=== PATIENT | female | born 1965 | race Caucasian/White ===

== ENCOUNTER 2020-10-18 09:36 | Inpatient (IN) | payer MEDICAID, OTHER ==
[~2020-10-18] VITALS: Ht 162.6 cm; Wt 62.0 kg
[2020-10-18] MEDS ORDERED: SODIUM CHLORIDE 0.9% 1,000 ML IVB ONE (10:30)
[2020-10-18] MEDS ORDERED: SODIUM CHLORIDE 0.9% 1,000 ML IV ONE (10:30)
[2020-10-18] MEDS ORDERED: ASPirin 81 mg TAB PO ONE (10:30)
[2020-10-18] MEDS ORDERED: dilTIAZem 25 MG/5 ML VIAL IV ONE ×2 (10:30)
[2020-10-18] MEDS ORDERED: ONDANSETRON HCL 4 MG/2 ML VIAL IV ONE (10:45)
[2020-10-18 10:49] LABS: Basophils # (auto) 0 10 ^3/uL (0-0.2); Basophils % (auto) 0.6 % (0.0-2.0); Eosinophils # (auto) 0.1 10 ^3/uL (0-0.8); Eosinophils % (auto) 1.9 % (0.0-7.0); Hematocrit 34.9 % (36.0-46.0); Hemoglobin 11.8 g/dL (12.2-16.2); Lymphocytes # (auto) 0.9 10 ^3/uL (0.4-5.4); Lymphocytes % (auto) 13.4 % (10.0-50.0); Mean Corpuscular Hemoglobin 29.9 pg (28.0-32.0); Mean Corpuscular Hgb Conc. 33.9 g/dL (32.0-36.0); Mean Corpuscular Volume 88.3 fL (80.0-100.0); Monocytes # (auto) 0.4 10 ^3/uL (0-1.3); Monocytes % (auto) 5.4 % (0.0-12.0); Neutrophils # (auto) 5.2 10 ^3/uL (1.6-8.6); Neutrophils % (auto) 78.7 % (37.0-80.0); Nucleated Red Blood Cells % 0.2 %; Red Blood Cells 3.95 10^6/uL (4.0-5.20); Red Cell Distribution Width 15.5 % (11.8-14.3); White Blood Cell 6.6 10^3/uL (4.4-10.8)
[2020-10-18 11:07] LABS: Anion Gap 9 (5-15); Blood Urea Nitrogen 18 mg/dL (7-18); Calcium 8.5 mg/dL (8.5-10.1); Carbon Dioxide 21 mmol/L (21-32); Chloride 112 mmol/L (98-107); Glucose 96 mg/dL (74-106); Magnesium 2.2 mg/dL (1.6-2.6); Potassium 4.2 mmol/L (3.5-5.1); Sodium 142 mmol/L (136-145)
[2020-10-18 11:11] LABS: INR 1.06 (0.9-1.15); Partial Thromboplastin Time 24.2 sec (23.0-31.2)
[2020-10-18 11:12] LABS: Alanine Aminotransferase 31 U/L (13-56); Alkaline Phosphatase 95 U/L (45-117); Aspartate Aminotransferase 18 U/L (15-37); GFR African American 83 mL/min; GFR Non-African American 69 mL/min; Total Protein 6.9 g/dL (6.4-8.2)
[2020-10-18 11:50] LABS: Urine Bacteria NONE SEEN /hpf (None Seen); Urine Blood Negative /uL (Negative); Urine Specific Gravity 1.017 (1.001-1.035); Urine WBC <1 /hpf (0 - 5)
[2020-10-18] MEDS ORDERED: NITROGLYCERIN 0.4 MG SL TAB SL PRN (12:45)
[2020-10-18] MEDS ORDERED: MORPHINE SULFATE INJECTION 2 MG/ML SYRG IV PRN ×2 (12:45→13:00)
[2020-10-18] MEDS ORDERED: TEMAZEPAM 15 MG CAP PO PRN (13:00)
[2020-10-18] MEDS ORDERED: LACTULOSE 20Gm/30ML SOLN PO PRN (13:00)
[2020-10-18] MEDS ORDERED: ACETAMINOPHEN 500 MG TAB PO PRN (13:00)
[2020-10-18] MEDS ORDERED: traMADol HCL 50 MG TAB PO PRN (13:00)
[2020-10-18] MEDS ORDERED: IOHEXOL 350 MG/ML 100ML IJ ONE (13:22)
[2020-10-18 13:23] LABS: Alcohol, Urine < 3.0 mg/dL (0-10); Amphetamine Screen, Urine NEGATIVE (NEGATIVE); Barbiturate Scree,Urine NEGATIVE (NEGATIVE); Benzodiazephine Screen, Urine NEGATIVE (NEGATIVE); Cannabinoid Screen, Urine NEGATIVE (NEGATIVE); Cocaine Screen, Urine NEGATIVE (NEGATIVE); Opiate Scree,Urine NEGATIVE (NEGATIVE); Phencyclidine Screen, Urine NEGATIVE (NEGATIVE)
[2020-10-18 17:05] VITALS: BP 152/92
[2020-10-18] MEDS: SODIUM CHLOR 0.9% PF (SALINE LOCK) 10ML VIAL/SYR IV SCH ×2 (17:15→20:59)
[2020-10-18 17:53] VITALS: BP 152/92
[2020-10-18] MEDS: FAMOTIDINE 20 MG TAB PO SCH (20:58)
[2020-10-18] MEDS: METOPROLOL TARTRATE 25 MG TAB PO SCH (20:58)
[2020-10-18 22:00] VITALS: BP 129/95
[2020-10-18] MEDS ORDERED: APIXABAN 5 MG TAB PO SCH (22:00)
[2020-10-19 05:00] VITALS: BP 135/97
[2020-10-19] MEDS: SODIUM CHLOR 0.9% PF (SALINE LOCK) 10ML VIAL/SYR IV SCH ×3 (05:15→21:08)
[2020-10-19 08:00] VITALS: BP 129/95
[2020-10-19] MEDS ORDERED: DIGOXIN (250MCG/ML) 2 ML AMPULE IV ONE (08:15)
[2020-10-19 09:00] VITALS: BP 151/105
[2020-10-19] MEDS ORDERED: ADENOSINE 58 MG in GIVE UN-DILUTED 0 ML IV STA (09:18)
[2020-10-19] MEDS ORDERED: FUROSEMIDE 40 MG/4 ML VIAL IV SCH (10:00)
[2020-10-19] MEDS ORDERED: ENOXAPARIN SOD 80 MG/0.8ML SYRINGE SC SCH (10:00)
[2020-10-19] MEDS: POTASSIUM CHL 20 Meq TABLET PO SCH (11:40)
[2020-10-19] MEDS: FAMOTIDINE 20 MG TAB PO SCH ×2 (11:41→21:08)
[2020-10-19] MEDS: LISINOPRIL 10 MG TAB PO SCH (11:41)
[2020-10-19] MEDS: METOPROLOL TARTRATE 25 MG TAB PO SCH ×2 (11:41→21:13)
[2020-10-19] MEDS: ENOXAPARIN SOD 80 MG/0.8ML SYRINGE SC SCH ×2 (11:42→21:08)
[2020-10-19] MEDS: DIGOXIN (250MCG/ML) 2 ML AMPULE IV SCH ×3 (11:42→23:00)
[2020-10-19] MEDS: ASPirin 81 mg TAB PO SCH (11:43)
[2020-10-19 11:45] LABS: Basophils # (auto) 0.1 10 ^3/uL (0-0.2); Basophils % (auto) 0.8 % (0.0-2.0); Eosinophils # (auto) 0.1 10 ^3/uL (0-0.8); Eosinophils % (auto) 0.9 % (0.0-7.0); Hematocrit 32.8 % (36.0-46.0); Lymphocytes # (auto) 0.9 10 ^3/uL (0.4-5.4); Lymphocytes % (auto) 13.5 % (10.0-50.0); Mean Corpuscular Hemoglobin 29.6 pg (28.0-32.0); Mean Corpuscular Hgb Conc. 33.6 g/dL (32.0-36.0); Mean Corpuscular Volume 88.2 fL (80.0-100.0); Monocytes # (auto) 0.4 10 ^3/uL (0-1.3); Monocytes % (auto) 5.7 % (0.0-12.0); Neutrophils # (auto) 5.5 10 ^3/uL (1.6-8.6); Neutrophils % (auto) 79.1 % (37.0-80.0); Red Blood Cells 3.72 10^6/uL (4.0-5.20); Red Cell Distribution Width 15.8 % (11.8-14.3)
[2020-10-19 12:01] LABS: Albumin 3.8 g/dL (3.4-5.0); Anion Gap 8 (5-15); Blood Urea Nitrogen 24 mg/dL (7-18); Calcium 8.6 mg/dL (8.5-10.1); Carbon Dioxide 21 mmol/L (21-32); Chloride 111 mmol/L (98-107); Glucose 126 mg/dL (74-106); Potassium 4.8 mmol/L (3.5-5.1); Sodium 140 mmol/L (136-145)
[2020-10-19 12:08] LABS: Alanine Aminotransferase 29 U/L (13-56); Alkaline Phosphatase 90 U/L (45-117); Aspartate Aminotransferase 20 U/L (15-37); BUN/Creatinine Ratio 28.2; Bilirubin, Total 0.9 mg/dL (0.2-1.0); Cholesterol 153 mg/dL (< 200); GFR African American 89 mL/min; GFR Non-African American 73 mL/min; HDL Cholesterol 48 mg/dL (40-59); LDL Cholesterol 94 mg/dL (< 100); Total Protein 6.6 g/dL (6.4-8.2); Triglycerides 49 mg/dL (< 150)
[2020-10-19 13:00] VITALS: BP 151/94
[2020-10-19 17:00] VITALS: BP 154/100
[2020-10-19] MEDS: FUROSEMIDE 40 MG/4 ML VIAL IV SCH (18:31)
[2020-10-19] MEDS ORDERED: METOPROLOL TARTRATE 1MG/1ML-5ML VIAL IV ONE (18:45)
[2020-10-19 22:24] VITALS: BP 142/72
[2020-10-20 05:15] VITALS: BP 139/82
[2020-10-20 05:18] LABS: Basophils # (auto) 0.1 10 ^3/uL (0-0.2); Basophils % (auto) 0.8 % (0.0-2.0); Eosinophils # (auto) 0.2 10 ^3/uL (0-0.8); Eosinophils % (auto) 2.4 % (0.0-7.0); Hemoglobin 11.4 g/dL (12.2-16.2); Lymphocytes # (auto) 1.6 10 ^3/uL (0.4-5.4); Lymphocytes % (auto) 22.7 % (10.0-50.0); Mean Corpuscular Hemoglobin 29.9 pg (28.0-32.0); Mean Corpuscular Hgb Conc. 34.6 g/dL (32.0-36.0); Mean Corpuscular Volume 86.3 fL (80.0-100.0); Monocytes # (auto) 0.5 10 ^3/uL (0-1.3); Monocytes % (auto) 7.5 % (0.0-12.0); Neutrophils # (auto) 4.7 10 ^3/uL (1.6-8.6); Neutrophils % (auto) 66.6 % (37.0-80.0); Red Blood Cells 3.82 10^6/uL (4.0-5.20); Red Cell Distribution Width 15.4 % (11.8-14.3); White Blood Cell 7.1 10^3/uL (4.4-10.8)
[2020-10-20] MEDS: DIGOXIN (250MCG/ML) 2 ML AMPULE IV SCH ×4 (05:20→23:00)
[2020-10-20 05:39] LABS: BUN/Creatinine Ratio 28.4; Calcium 8.9 mg/dL (8.5-10.1); Potassium 4.3 mmol/L (3.5-5.1)
[2020-10-20] MEDS: FUROSEMIDE 40 MG/4 ML VIAL IV SCH ×2 (05:40→17:21)
[2020-10-20] MEDS: SODIUM CHLOR 0.9% PF (SALINE LOCK) 10ML VIAL/SYR IV SCH ×3 (06:24→22:00)
[2020-10-20 09:00] VITALS: BP 150/78
[2020-10-20] MEDS: ASPirin 81 mg TAB PO SCH (09:34)
[2020-10-20] MEDS: FAMOTIDINE 20 MG TAB PO SCH ×2 (09:35→22:34)
[2020-10-20] MEDS: POTASSIUM CHL 20 Meq TABLET PO SCH (09:35)
[2020-10-20] MEDS: DIGOXIN 0.125 MG TAB PO SCH (09:35)
[2020-10-20] MEDS: METOPROLOL TARTRATE 25 MG TAB PO SCH ×2 (09:35→22:34)
[2020-10-20] MEDS: LISINOPRIL 10 MG TAB PO SCH (09:36)
[2020-10-20] MEDS: ENOXAPARIN SOD 80 MG/0.8ML SYRINGE SC SCH ×2 (09:36→22:34)
[2020-10-20 13:00] VITALS: BP 133/65
[2020-10-20 17:00] VITALS: BP 140/72
[2020-10-20 19:36] LABS: INR 1.09 (0.9-1.15); Partial Thromboplastin Time 34.9 sec (23.0-31.2)
[2020-10-20 22:00] VITALS: BP 129/68
[2020-10-21] VITALS (11 sets, daily range): BP systolic 113–165; BP diastolic 65–95
[2020-10-21] MEDS: FUROSEMIDE 40 MG/4 ML VIAL IV SCH (05:24)
[2020-10-21] MEDS: SODIUM CHLOR 0.9% PF (SALINE LOCK) 10ML VIAL/SYR IV SCH ×3 (05:24→22:24)
[2020-10-21 05:47] LABS: Basophils # (auto) 0 10 ^3/uL (0-0.2); Basophils % (auto) 0.5 % (0.0-2.0); Eosinophils # (auto) 0.2 10 ^3/uL (0-0.8); Eosinophils % (auto) 2.7 % (0.0-7.0); Hematocrit 36.8 % (36.0-46.0); Hemoglobin 12.9 g/dL (12.2-16.2); Lymphocytes # (auto) 1.5 10 ^3/uL (0.4-5.4); Lymphocytes % (auto) 20.7 % (10.0-50.0); Mean Corpuscular Hemoglobin 29.9 pg (28.0-32.0); Mean Corpuscular Volume 85.2 fL (80.0-100.0); Monocytes # (auto) 0.6 10 ^3/uL (0-1.3); Monocytes % (auto) 8.9 % (0.0-12.0); Neutrophils # (auto) 4.7 10 ^3/uL (1.6-8.6); Neutrophils % (auto) 67.2 % (37.0-80.0); Red Blood Cells 4.32 10^6/uL (4.0-5.20)
[2020-10-21 06:09] LABS: BUN/Creatinine Ratio 23.5; Calcium 9.1 mg/dL (8.5-10.1); INR 1.12 (0.9-1.15); Partial Thromboplastin Time 36.1 sec (23.0-31.2); Potassium 4.1 mmol/L (3.5-5.1)
[2020-10-21] MEDS: PROMETHAZINE HCL 25 MG/ML 1ML IV PRN ×2 (09:28→13:55)
[2020-10-21] MEDS ORDERED: LIDOCAINE 2%HCL (LOCAL ANESTH.) INJ 20ML MDV ONE (09:55)
[2020-10-21] MEDS ORDERED: IODIXANOL 320MG/ML 100ML BTL IV ONE ×2 (09:55→10:03)
[2020-10-21] MEDS: METOPROLOL TARTRATE 25 MG TAB PO SCH ×3 (10:00→22:24)
[2020-10-21] MEDS: ASPirin 81 mg TAB PO SCH (10:00)
[2020-10-21] MEDS: LISINOPRIL 10 MG TAB PO SCH ×2 (10:00→13:50)
[2020-10-21] MEDS: DIGOXIN 0.125 MG TAB PO SCH ×2 (10:00→13:51)
[2020-10-21] MEDS: ENOXAPARIN SOD 80 MG/0.8ML SYRINGE SC SCH ×2 (10:00→22:00)
[2020-10-21] MEDS: POTASSIUM CHL 20 Meq TABLET PO SCH ×2 (10:00→13:53)
[2020-10-21] MEDS ORDERED: ANGIOMAX 250 MG VIAL IV ONE (10:02)
[2020-10-21] MEDS ORDERED: fentaNYL CITRATE 100 MCG/2 ML VL ONE (10:03)
[2020-10-21] MEDS ORDERED: MIDAZOLAM HCL 2MG/2ML 2ml VIAL (1mg/ml) ONE (10:03)
[2020-10-21] MEDS ORDERED: SODIUM CHL 0.9% 0 ML ONE (10:03)
[2020-10-21] MEDS ORDERED: diphenhdrAMINE HCL 50 MG/1 ML VL ONE (10:29)
[2020-10-21] MEDS ORDERED: FAMOTIDINE 20 MG TAB PO SCH (22:00)
[2020-10-22 04:56] VITALS: BP 134/64
[2020-10-22] MEDS: SODIUM CHLOR 0.9% PF (SALINE LOCK) 10ML VIAL/SYR IV SCH ×3 (05:31→22:44)
[2020-10-22 06:00] LABS: BUN/Creatinine Ratio 25.5; Potassium 4.2 mmol/L (3.5-5.1)
[2020-10-22 06:31] LABS: Basophils # (auto) 0 10 ^3/uL (0-0.2); Basophils % (auto) 0.6 % (0.0-2.0); Eosinophils # (auto) 0.2 10 ^3/uL (0-0.8); Eosinophils % (auto) 2.1 % (0.0-7.0); Hematocrit 38.3 % (36.0-46.0); Hemoglobin 12.8 g/dL (12.2-16.2); Lymphocytes # (auto) 1.4 10 ^3/uL (0.4-5.4); Lymphocytes % (auto) 17.4 % (10.0-50.0); Mean Corpuscular Hemoglobin 28.7 pg (28.0-32.0); Mean Corpuscular Hgb Conc. 33.4 g/dL (32.0-36.0); Mean Corpuscular Volume 85.9 fL (80.0-100.0); Monocytes # (auto) 0.8 10 ^3/uL (0-1.3); Monocytes % (auto) 9.9 % (0.0-12.0); Neutrophils # (auto) 5.6 10 ^3/uL (1.6-8.6); Nucleated Red Blood Cells % 0.1 %; Red Blood Cells 4.46 10^6/uL (4.0-5.20); Red Cell Distribution Width 14.8 % (11.8-14.3)
[2020-10-22 09:00] VITALS: BP 150/73
[2020-10-22] MEDS ORDERED: FUROSEMIDE 40 MG/4 ML VIAL IV SCH (10:00)
[2020-10-22] MEDS: POTASSIUM CHL 20 Meq TABLET PO SCH (11:14)
[2020-10-22] MEDS: DIGOXIN 0.125 MG TAB PO SCH (11:15)
[2020-10-22] MEDS: METOPROLOL TARTRATE 25 MG TAB PO SCH ×2 (11:15→22:45)
[2020-10-22] MEDS: LISINOPRIL 10 MG TAB PO SCH (11:16)
[2020-10-22 13:00] VITALS: BP 118/71
[2020-10-22] MEDS: FAMOTIDINE 20 MG TAB PO SCH ×2 (13:39→22:45)
[2020-10-22 16:38] VITALS: BP 112/74
[2020-10-22 20:00] VITALS: BP 111/71
[2020-10-22] MEDS: APIXABAN 5 MG TAB PO SCH (22:45)
[2020-10-23 05:00] VITALS: BP 104/59
[2020-10-23] MEDS: SODIUM CHLOR 0.9% PF (SALINE LOCK) 10ML VIAL/SYR IV SCH ×2 (05:43→13:20)
[2020-10-23 06:06] LABS: Basophils # (auto) 0.1 10 ^3/uL (0-0.2); Basophils % (auto) 0.8 % (0.0-2.0); Eosinophils # (auto) 0.4 10 ^3/uL (0-0.8); Eosinophils % (auto) 4.5 % (0.0-7.0); Hematocrit 41.9 % (36.0-46.0); Hemoglobin 14.6 g/dL (12.2-16.2); Lymphocytes # (auto) 1.9 10 ^3/uL (0.4-5.4); Lymphocytes % (auto) 21.5 % (10.0-50.0); Mean Corpuscular Hemoglobin 29.8 pg (28.0-32.0); Mean Corpuscular Hgb Conc. 34.8 g/dL (32.0-36.0); Mean Corpuscular Volume 85.6 fL (80.0-100.0); Monocytes % (auto) 10.9 % (0.0-12.0); Neutrophils # (auto) 5.4 10 ^3/uL (1.6-8.6); Neutrophils % (auto) 62.3 % (37.0-80.0); Nucleated Red Blood Cells % 0.1 %; Red Blood Cells 4.89 10^6/uL (4.0-5.20); Red Cell Distribution Width 14.9 % (11.8-14.3); White Blood Cell 8.7 10^3/uL (4.4-10.8)
[2020-10-23 06:21] LABS: Calcium 9.6 mg/dL (8.5-10.1); Potassium 4.5 mmol/L (3.5-5.1)
[2020-10-23 06:22] LABS: BUN/Creatinine Ratio 27.1
[2020-10-23 09:00] VITALS: BP 127/79
[2020-10-23] MEDS ORDERED: FURO20TA3 PO (10:24)
[2020-10-23] MEDS ORDERED: DIGO1TAB48 PO (10:24)
[2020-10-23] MEDS ORDERED: APIX5TAB PO (10:24)
[2020-10-23] MEDS ORDERED: MET25T PO (10:24)
[2020-10-23] MEDS ORDERED: LISI-716 PO (10:27)
[2020-10-23] MEDS: METOPROLOL TARTRATE 25 MG TAB PO SCH (10:29)
[2020-10-23] MEDS: APIXABAN 5 MG TAB PO SCH (10:30)
[2020-10-23] MEDS: DIGOXIN 0.125 MG TAB PO SCH (10:30)
[2020-10-23] MEDS: FAMOTIDINE 20 MG TAB PO SCH (10:31)
[2020-10-23] MEDS: LISINOPRIL 10 MG TAB PO SCH (10:31)
[2020-10-23 11:04] VITALS: BP 127/79
[2020-10-23 13:00] VITALS: BP 113/58
== END 2020-10-23 14:45 | disposition home or self-care (01) | DRG 286 ==
LOC: ER 09:36 → EDBD 09:36 → TELE 12:45 → TELE-CENTR 16:03
PROVIDERS: ADMIT Internal Medicine; ATTEND Internal Medicine
PROC: 4A023N8 Measurement of Cardiac Sampling and Pressure, Bilateral, Percutaneous Approach (ICD-10-PCS; principal; 2020-10-21)
PROC: B2111ZZ Fluoroscopy of Multiple Coronary Arteries using Low Osmolar Contrast (ICD-10-PCS; 2020-10-21)
PROC: B2151ZZ Fluoroscopy of Left Heart using Low Osmolar Contrast (ICD-10-PCS; 2020-10-21)
PROC: 4A033BC Measurement of Arterial Pressure, Coronary, Percutaneous Approach (ICD-10-PCS; 2020-10-21)
DX: I48.91 Unspecified atrial fibrillation (principal); I50.43 Acute on chronic combined systolic (congestive) and diastolic (congestive) heart failure; J81.0 Acute pulmonary edema; D64.9 Anemia, unspecified; D69.6 Thrombocytopenia, unspecified; I27.20 Pulmonary hypertension, unspecified; Z20.822 Contact with and (suspected) exposure to COVID-19; I11.0 Hypertensive heart disease with heart failure; I25.10 Atherosclerotic heart disease of native coronary artery without angina pectoris; Z79.01 Long term (current) use of anticoagulants; Z88.8 Allergy status to other drugs, medicaments and biological substances; Z82.49 Family history of ischemic heart disease and other diseases of the circulatory system; Z87.891 Personal history of nicotine dependence; Z90.49 Acquired absence of other specified parts of digestive tract
CPT/HCPCS: 36415; 70450; 71045; 71046; 71275; 80048; 80053; 80061; 80307; 81001; 81025; 82550; 83735; 83880; 84443; 84484; 85025; 85379; 85610; 85730; 86850; 86900; 86901; 87426; 93005; 93306; 93460; 93571; 93970; 96361; 96374; 96375; 99152; 99153; C1751; G0378; J0153; J2250; J2405; Q9967

== ENCOUNTER 2020-11-23 12:56 | Emergency (ER) | payer MEDICAID ==
[~2020-11-23] VITALS: Ht 162.6 cm; Wt 65.8 kg
[~2020-11-23 12:56] MED LIST: APIX5TAB PO; DIGO1TAB48 PO; FURO20TA3 PO; LISI-716 PO; MET25T PO
[2020-11-23 16:22] VITALS: BP 136/77
== END 2020-11-23 17:17 | disposition home or self-care (01) ==
LOC: ER 12:56
DX: H60.92 Unspecified otitis externa, left ear (principal); I11.0 Hypertensive heart disease with heart failure; I50.9 Heart failure, unspecified; I48.91 Unspecified atrial fibrillation; Z79.899 Other long term (current) drug therapy; Z88.1 Allergy status to other antibiotic agents; Z88.8 Allergy status to other drugs, medicaments and biological substances

== ENCOUNTER 2021-02-16 08:55 | Emergency (ER) | payer MEDICAID ==
[~2021-02-16] VITALS: Ht 162.6 cm; Wt 63.5 kg
[2021-02-16] MEDS ORDERED: ASPirin 81 mg TAB PO ONE (09:15)
[2021-02-16 09:52] LABS: Albumin 3.9 g/dL (3.4-5.0); Anion Gap 7 (5-15); Blood Urea Nitrogen 14 mg/dL (7-18); Calcium 8.7 mg/dL (8.5-10.1); Carbon Dioxide 23 mmol/L (21-32); Chloride 112 mmol/L (98-107); Glucose 86 mg/dL (74-106); Sodium 142 mmol/L (136-145)
[2021-02-16 09:57] LABS: Alanine Aminotransferase 19 U/L (13-56); Alkaline Phosphatase 104 U/L (45-117); Aspartate Aminotransferase 12 U/L (15-37); BUN/Creatinine Ratio 13.1; Bilirubin, Total 0.7 mg/dL (0.2-1.0); GFR African American 68 mL/min; GFR Non-African American 56 mL/min
[2021-02-16 09:58] LABS: Basophils # (auto) 0 10 ^3/uL (0-0.2); Basophils % (auto) 0.4 % (0.0-2.0); Eosinophils # (auto) 0.1 10 ^3/uL (0-0.8); Eosinophils % (auto) 2.6 % (0.0-7.0); Hematocrit 31.8 % (36.0-46.0); Hemoglobin 10.8 g/dL (12.2-16.2); Lymphocytes # (auto) 0.8 10 ^3/uL (0.4-5.4); Lymphocytes % (auto) 14.1 % (10.0-50.0); Mean Corpuscular Hemoglobin 29.5 pg (28.0-32.0); Mean Corpuscular Hgb Conc. 33.9 g/dL (32.0-36.0); Mean Corpuscular Volume 86.9 fL (80.0-100.0); Monocytes # (auto) 0.3 10 ^3/uL (0-1.3); Monocytes % (auto) 5.8 % (0.0-12.0); Neutrophils # (auto) 4.4 10 ^3/uL (1.6-8.6); Neutrophils % (auto) 77.1 % (37.0-80.0); Red Blood Cells 3.66 10^6/uL (4.0-5.20); Red Cell Distribution Width 13.6 % (11.8-14.3); White Blood Cell 5.7 10^3/uL (4.4-10.8)
[2021-02-16 10:07] LABS: INR 1.14 (0.9-1.15); Partial Thromboplastin Time 32.1 sec (23.6-33.0)
[2021-02-16] MEDS ORDERED: FUROSEMIDE 20 MG/2 ML VIAL IV ONE (11:15)
[2021-02-16] MEDS ORDERED: METOPROLOL SUCCINATE XL 50 MG TAB PO ONE (11:45)
[2021-02-16] MEDS ORDERED: METOPROLOL TARTRATE 1MG/1ML-5ML VIAL IV ONE (11:45)
[2021-02-16] MEDS ORDERED: DIGOXIN (250MCG/ML) 2 ML AMPULE IV ONE (11:45)
[2021-02-16] MEDS ORDERED: DIGOXIN 0.25 MG TAB PO ONE (11:45)
[2021-02-16] MEDS ORDERED: dilTIAZem 25 MG/5 ML VIAL IV ONE (11:45)
[2021-02-16 14:31] VITALS: BP 127/72
== END 2021-02-16 13:03 | disposition home or self-care (01) ==
LOC: ER 08:55 → EDBD 08:55 → ER 13:03
DX: I48.91 Unspecified atrial fibrillation (principal); H91.10 Presbycusis, unspecified ear; I11.0 Hypertensive heart disease with heart failure; I50.9 Heart failure, unspecified; Z79.899 Other long term (current) drug therapy; Z88.1 Allergy status to other antibiotic agents; Z88.8 Allergy status to other drugs, medicaments and biological substances
CPT/HCPCS: 36415; 71045; 80053; 83880; 84443; 84484; 85025; 85610; 85730; 93005; 96374; 96375; 99285; J1160; J1940

== ENCOUNTER 2021-05-31 11:40 | Emergency (ER) | payer MEDICAID ==
[~2021-05-31] VITALS: Ht 162.6 cm; Wt 63.5 kg
[2021-05-31 14:56] VITALS: BP 156/89
[2021-05-31] MEDS ORDERED: methylPREDNISolone SOD SUCC 125 MG/2 ML VL IM ONE (15:15)
[2021-05-31] MEDS ORDERED: diphenhdrAMINE HCL 50 MG/1 ML VL IM ONE (15:15)
[2021-05-31] MEDS ORDERED: PRED10TA PO (15:20)
[2021-05-31] MEDS ORDERED: DIPH25CA66 PO (15:20)
== END 2021-05-31 15:59 | disposition home or self-care (01) ==
LOC: ER 11:40
DX: T78.40XA Allergy, unspecified, initial encounter (principal); I11.0 Hypertensive heart disease with heart failure; I50.9 Heart failure, unspecified; Z88.1 Allergy status to other antibiotic agents; X58.XXXA Exposure to other specified factors, initial encounter
CPT/HCPCS: 96372; 99284; J1200; J2930

== ENCOUNTER 2021-08-12 15:12 | Inpatient (IN) | payer MEDICAID ==
[~2021-08-12] VITALS: Ht 162.6 cm; Wt 63.3 kg
[~2021-08-12 15:12] MED LIST changes: +DIPH25CA66 PO; +PRED10TA PO
[2021-08-12 15:50] LABS: Basophils # (auto) 0.2 10 ^3/uL (0-0.2); Basophils % (auto) 2.9 % (0.0-2.0); Eosinophils # (auto) 0.2 10 ^3/uL (0-0.8); Eosinophils % (auto) 3.4 % (0.0-7.0); Hematocrit 33.4 % (36.0-46.0); Hemoglobin 11.2 g/dL (12.2-16.2); Lymphocytes % (auto) 16.4 % (10.0-50.0); Mean Corpuscular Hgb Conc. 33.4 g/dL (32.0-36.0); Mean Corpuscular Volume 83.7 fL (80.0-100.0); Monocytes # (auto) 0.4 10 ^3/uL (0-1.3); Monocytes % (auto) 7.3 % (0.0-12.0); Neutrophils # (auto) 4.2 10 ^3/uL (1.6-8.6); Nucleated Red Blood Cells % 0.1 %; Red Blood Cells 3.99 10^6/uL (4.0-5.20); Red Cell Distribution Width 16.1 % (11.8-14.3); White Blood Cell 5.9 10^3/uL (4.4-10.8)
[2021-08-12 16:08] LABS: INR 1.09 (0.9-1.15); Partial Thromboplastin Time 35.1 sec (23.6-33.0)
[2021-08-12 16:09] LABS: Albumin 4.1 g/dL (3.4-5.0); BUN/Creatinine Ratio 8.9; Calcium 8.5 mg/dL (8.5-10.1); Potassium 4.2 mmol/L (3.5-5.1)
[2021-08-12 16:12] LABS: Bilirubin, Total 0.5 mg/dL (0.2-1.0); Total Protein 7.1 g/dL (6.4-8.2)
[2021-08-12] MEDS ORDERED: dilTIAZem 25 MG/5 ML VIAL IV ONE ×2 (16:30→17:45)
[2021-08-12 16:51] LABS: Magnesium 2.1 mg/dL (1.6-2.6)
[2021-08-12 17:01] LABS: Urine Bacteria FEW /hpf (None Seen); Urine Blood TRACE /uL (Negative); Urine Specific Gravity 1.007 (1.001-1.035); Urine WBC 3 /hpf (0 - 5)
[2021-08-13] MEDS ORDERED: MORPHINE SULFATE INJECTION 2 MG/ML SYRG IV PRN (02:15)
[2021-08-13] MEDS ORDERED: NITROGLYCERIN 0.4 MG SL TAB SL PRN (02:15)
[2021-08-13] MEDS ORDERED: PNEUMOCOCCAL VACC POLYS 25 MCG/0.5 ML VIAL IM ONE (04:45)
[2021-08-13 06:34] VITALS: BP 133/90
[2021-08-13 09:00] VITALS: BP 141/85
[2021-08-13] MEDS ORDERED: LORazepam 2MG/ML-1ML VIAL IV PRN (09:30)
[2021-08-13 09:37] LABS: Basophils # (auto) 0.1 10 ^3/uL (0-0.2); Basophils % (auto) 1.5 % (0.0-2.0); Eosinophils # (auto) 0.1 10 ^3/uL (0-0.8); Eosinophils % (auto) 2.9 % (0.0-7.0); Hemoglobin 11.2 g/dL (12.2-16.2); Lymphocytes # (auto) 0.8 10 ^3/uL (0.4-5.4); Lymphocytes % (auto) 16.4 % (10.0-50.0); Mean Corpuscular Hemoglobin 28.4 pg (28.0-32.0); Mean Corpuscular Volume 83.4 fL (80.0-100.0); Monocytes # (auto) 0.3 10 ^3/uL (0-1.3); Neutrophils # (auto) 3.5 10 ^3/uL (1.6-8.6); Neutrophils % (auto) 72.2 % (37.0-80.0); Red Blood Cells 3.95 10^6/uL (4.0-5.20); Red Cell Distribution Width 15.8 % (11.8-14.3); White Blood Cell 4.9 10^3/uL (4.4-10.8)
[2021-08-13 09:49] LABS: Calcium 9.2 mg/dL (8.5-10.1); Potassium 4.1 mmol/L (3.5-5.1)
[2021-08-13 09:51] LABS: BUN/Creatinine Ratio 11.7
[2021-08-13] MEDS ORDERED: METOPROLOL TARTRATE 25 MG TAB PO SCH (10:00)
[2021-08-13] MEDS: APIXABAN 5 MG TAB PO SCH ×2 (11:37→21:43)
[2021-08-13] MEDS: LISINOPRIL 10 MG TAB PO SCH (11:38)
[2021-08-13] MEDS: FUROSEMIDE 20 MG TAB PO SCH (11:38)
[2021-08-13] MEDS: DIGOXIN 0.125 MG TAB PO SCH (11:38)
[2021-08-13 13:00] VITALS: BP 145/92
[2021-08-13] MEDS ORDERED: METOPROLOL TARTRATE 25 MG TAB PO ONE (14:00)
[2021-08-13] MEDS ORDERED: MET25T PO (16:15)
[2021-08-13 17:09] VITALS: BP 113/67
[2021-08-13] MEDS: METOPROLOL TARTRATE 25 MG TAB PO SCH (21:43)
[2021-08-13 22:00] VITALS: BP 133/77
[2021-08-14 05:00] VITALS: BP 128/77
[2021-08-14] MEDS: ONDANSETRON HCL 4 MG/2 ML VIAL IV PRN ×2 (05:46→09:46)
[2021-08-14 08:40] VITALS: BP 128/70
[2021-08-14] MEDS: DIGOXIN 0.125 MG TAB PO SCH (10:00)
[2021-08-14] MEDS: LISINOPRIL 10 MG TAB PO SCH (10:00)
[2021-08-14] MEDS: METOPROLOL TARTRATE 25 MG TAB PO SCH (10:00)
[2021-08-14] MEDS: FUROSEMIDE 20 MG TAB PO SCH (10:00)
[2021-08-14] MEDS: APIXABAN 5 MG TAB PO SCH (10:00)
[2021-08-14 12:40] VITALS: BP 126/75
[2021-08-14] MEDS ORDERED: POLY33504 PO (14:00)
[2021-08-14] MEDS ORDERED: DOCU-94 PO (14:00)
[2021-08-14] MEDS ORDERED: POLYETHYLENE GLYCOL 17 GM PWDR PO ONE (14:00)
[2021-08-14] MEDS ORDERED: PANT40T PO (14:00)
[2021-08-14 16:45] VITALS: BP 137/87
[2021-08-14 19:47] VITALS: BP 120/70
[2021-08-14] MEDS ORDERED: DOCUSATE SOD 100 MG CAP PO SCH (22:00)
== END 2021-08-14 20:10 | disposition home health service (06) | DRG 347 ==
LOC: ER 15:12 → TELE 08-13 02:10 → TELE-WESTW 08-13 03:10
PROVIDERS: ADMIT Hospitalist; ATTEND Hospitalist
DX: M51.36 Other intervertebral disc degeneration, lumbar region (principal); I11.0 Hypertensive heart disease with heart failure; I50.9 Heart failure, unspecified; F17.200 Nicotine dependence, unspecified, uncomplicated; G62.9 Polyneuropathy, unspecified; F17.210 Nicotine dependence, cigarettes, uncomplicated; I48.91 Unspecified atrial fibrillation; H91.90 Unspecified hearing loss, unspecified ear; Z20.822 Contact with and (suspected) exposure to COVID-19; K59.00 Constipation, unspecified; I25.10 Atherosclerotic heart disease of native coronary artery without angina pectoris; Z95.1 Presence of aortocoronary bypass graft; Z82.49 Family history of ischemic heart disease and other diseases of the circulatory system; Z79.01 Long term (current) use of anticoagulants; Z80.51 Family history of malignant neoplasm of kidney; Z88.8 Allergy status to other drugs, medicaments and biological substances
CPT/HCPCS: 36415; 70450; 70551; 71045; 72131; 72148; 74176; 80048; 80053; 81001; 83735; 84100; 84484; 85025; 85610; 85730; 96374; 96376; 97163; G0378; J2405

== ENCOUNTER 2021-09-04 09:13 | Emergency (ER) | payer MEDICAID ==
[~2021-09-04] VITALS: Ht 162.6 cm; Wt 68.0 kg
[~2021-09-04 09:13] MED LIST changes: -DIPH25CA66 PO; +DOCU-94 PO; +PANT40T PO; +POLY33504 PO; -PRED10TA PO
[2021-09-04 10:14] LABS: Albumin 3.7 g/dL (3.4-5.0); Calcium 8.6 mg/dL (8.5-10.1); Potassium 4.1 mmol/L (3.5-5.1)
[2021-09-04 10:16] LABS: Basophils # (auto) 0 10 ^3/uL (0-0.2); Basophils % (auto) 0.6 % (0.0-2.0); Eosinophils # (auto) 0.1 10 ^3/uL (0-0.8); Hematocrit 30.4 % (36.0-46.0); Hemoglobin 10.3 g/dL (12.2-16.2); Lymphocytes # (auto) 0.7 10 ^3/uL (0.4-5.4); Lymphocytes % (auto) 16.7 % (10.0-50.0); Mean Corpuscular Hemoglobin 28.6 pg (28.0-32.0); Mean Corpuscular Volume 84.3 fL (80.0-100.0); Monocytes # (auto) 0.3 10 ^3/uL (0-1.3); Monocytes % (auto) 6.5 % (0.0-12.0); Neutrophils % (auto) 74.2 % (37.0-80.0); Nucleated Red Blood Cells % 0.2 %; Red Cell Distribution Width 15.3 % (11.8-14.3); White Blood Cell 4.1 10^3/uL (4.4-10.8)
[2021-09-04 10:19] LABS: BUN/Creatinine Ratio 19.3; Bilirubin, Total 0.9 mg/dL (0.2-1.0); Total Protein 6.4 g/dL (6.4-8.2)
[2021-09-04] MEDS ORDERED: SODIUM CHLORIDE 0.9% 2,050 ML IV ONE (13:15)
[2021-09-04 13:21] VITALS: BP 140/97
[2021-09-04 13:59] LABS: Urine Bacteria FEW /hpf (None Seen); Urine Blood TRACE /uL (Negative); Urine Budding Yeast OCCASIONAL /hpf (None Seen); Urine Hyaline Cast FEW /lpf (0 - 2); Urine Mucus FEW (None Seen); Urine Specific Gravity 1.026 (1.001-1.035); Urine WBC 3 /hpf (0 - 5)
== END 2021-09-04 15:23 | disposition home or self-care (01) ==
LOC: ER 09:13
DX: I11.0 Hypertensive heart disease with heart failure (principal); I50.9 Heart failure, unspecified; I48.20 Chronic atrial fibrillation, unspecified; E86.0 Dehydration
CPT/HCPCS: 36415; 80053; 81001; 84484; 85025; 93005

== ENCOUNTER 2021-11-18 17:27 | Emergency (ER) | payer MEDICAID ==
[~2021-11-18] VITALS: Ht 162.6 cm; Wt 63.5 kg
[2021-11-18 20:14] VITALS: BP 144/75
== END 2021-11-18 20:18 | disposition home or self-care (01) ==
LOC: ER 17:27
DX: M79.605 Pain in left leg (principal); I11.0 Hypertensive heart disease with heart failure; I50.9 Heart failure, unspecified; I48.91 Unspecified atrial fibrillation; Z86.73 Personal history of transient ischemic attack (TIA), and cerebral infarction without residual deficits; Z90.89 Acquired absence of other organs; Z79.899 Other long term (current) drug therapy; Z88.1 Allergy status to other antibiotic agents; Z88.8 Allergy status to other drugs, medicaments and biological substances
CPT/HCPCS: 93971

== ENCOUNTER 2021-12-03 11:13 | Inpatient (IN) | payer MEDICAID ==
[~2021-12-03] VITALS: Ht 162.6 cm; Wt 60.7 kg
[2021-12-03] MEDS: CLINDAMYCIN 600MG IV 50 ML IV SCH (04:10)
[2021-12-03] MEDS: SODIUM CHLOR 0.9% PF (SALINE LOCK) 10ML VIAL/SYR IV SCH (04:10)
[2021-12-03 12:32] LABS: Basophils # (auto) 0 10 ^3/uL (0-0.2); Basophils % (auto) 0.5 % (0.0-2.0); Eosinophils # (auto) 0.1 10 ^3/uL (0-0.8); Eosinophils % (auto) 2.3 % (0.0-7.0); Hemoglobin 10.7 g/dL (12.2-16.2); Lymphocytes # (auto) 0.9 10 ^3/uL (0.4-5.4); Lymphocytes % (auto) 14.8 % (10.0-50.0); Mean Corpuscular Hemoglobin 27.3 pg (28.0-32.0); Mean Corpuscular Hgb Conc. 32.3 g/dL (32.0-36.0); Mean Corpuscular Volume 84.3 fL (80.0-100.0); Monocytes # (auto) 0.4 10 ^3/uL (0-1.3); Monocytes % (auto) 5.9 % (0.0-12.0); Neutrophils # (auto) 4.6 10 ^3/uL (1.6-8.6); Neutrophils % (auto) 76.5 % (37.0-80.0); Red Blood Cells 3.92 10^6/uL (4.0-5.20); Red Cell Distribution Width 15.6 % (11.8-14.3)
[2021-12-03 12:51] LABS: Calcium 8.4 mg/dL (8.5-10.1); Potassium 4.2 mmol/L (3.5-5.1)
[2021-12-03 13:09] LABS: Albumin 4.1 g/dL (3.4-5.0); BUN/Creatinine Ratio 9.5; Bilirubin, Total 0.8 mg/dL (0.2-1.0); Magnesium 2.2 mg/dL (1.6-2.6); Total Protein 6.6 g/dL (6.4-8.2)
[2021-12-03] MEDS ORDERED: CEPHALEXIN 250 MG CAP PO ONE (17:15)
[2021-12-03] MEDS ORDERED: HYDROcodone-ACET 5/325MG TAB PO PRN (21:45)
[2021-12-03] MEDS ORDERED: MORPHINE SULFATE INJ 2 MG/ml SYRG IV PRN (21:45)
[2021-12-03] MEDS ORDERED: DOCUSATE SOD 100 MG CAP PO PRN (21:45)
[2021-12-03] MEDS ORDERED: FUROSEMIDE 20 MG/2 ML VIAL IV ONE (21:45)
[2021-12-03] MEDS ORDERED: ACETAMINOPHEN 325 MG TAB PO PRN (21:45)
[2021-12-03] MEDS: CARVEDILOL 12.5 MG TAB PO SCH (22:00)
[2021-12-03] MEDS: APIXABAN 5 MG TAB PO SCH (22:00)
[2021-12-04 04:51] LABS: Urine Bacteria FEW /hpf (None Seen); Urine Blood Negative /uL (Negative); Urine Hyaline Cast FEW /lpf (0 - 2); Urine Mucus FEW (None Seen); Urine Specific Gravity 1.017 (1.001-1.035); Urine WBC 43 /hpf (0 - 5)
[2021-12-04] MEDS: CLINDAMYCIN 600MG IV 50 ML IV SCH ×3 (05:56→21:43)
[2021-12-04] MEDS: SODIUM CHLOR 0.9% PF (SALINE LOCK) 10ML VIAL/SYR IV SCH ×3 (05:58→21:35)
[2021-12-04 08:04] LABS: Basophils # (auto) 0 10 ^3/uL (0-0.2); Basophils % (auto) 0.6 % (0.0-2.0); Eosinophils # (auto) 0.1 10 ^3/uL (0-0.8); Eosinophils % (auto) 2.4 % (0.0-7.0); Hematocrit 30.3 % (36.0-46.0); Lymphocytes # (auto) 0.7 10 ^3/uL (0.4-5.4); Lymphocytes % (auto) 22.6 % (10.0-50.0); Mean Corpuscular Hemoglobin 27.6 pg (28.0-32.0); Mean Corpuscular Volume 83.5 fL (80.0-100.0); Monocytes # (auto) 0.2 10 ^3/uL (0-1.3); Monocytes % (auto) 7.1 % (0.0-12.0); Neutrophils # (auto) 2.1 10 ^3/uL (1.6-8.6); Neutrophils % (auto) 67.3 % (37.0-80.0); Red Blood Cells 3.63 10^6/uL (4.0-5.20); Red Cell Distribution Width 15.1 % (11.8-14.3); White Blood Cell 3.1 10^3/uL (4.4-10.8)
[2021-12-04 08:23] LABS: Albumin 3.4 g/dL (3.4-5.0); Calcium 8.4 mg/dL (8.5-10.1)
[2021-12-04 08:26] LABS: BUN/Creatinine Ratio 14.9; Bilirubin, Total 1.1 mg/dL (0.2-1.0); Total Protein 5.6 g/dL (6.4-8.2)
[2021-12-04] MEDS ORDERED: MORPHINE SULFATE INJ 2 MG/ml SYRG IV PRN ×2 (08:30)
[2021-12-04] MEDS ORDERED: NITROGLYCERIN 0.4 MG SL TAB SL PRN ×2 (08:30)
[2021-12-04] MEDS: FUROSEMIDE 20 MG/2 ML VIAL IV SCH (11:02)
[2021-12-04] MEDS: CARVEDILOL 12.5 MG TAB PO SCH ×2 (11:02→21:36)
[2021-12-04] MEDS: APIXABAN 5 MG TAB PO SCH ×2 (11:03→21:36)
[2021-12-04] MEDS: levoFLOXacin 250MG 50 ML IV SCH (11:03)
[2021-12-04] MEDS: FAMOTIDINE (10MG/ML) 2ML VL IV SCH (11:03)
[2021-12-04 17:26] VITALS: BP 110/73
[2021-12-04 18:04] VITALS: BP 129/61
[2021-12-04] MEDS: ONDANSETRON HCL 4 MG/2 ML VIAL IV PRN (20:24)
[2021-12-04 22:00] VITALS: BP 121/52
[2021-12-05 05:00] VITALS: BP 118/70
[2021-12-05] MEDS: SODIUM CHLOR 0.9% PF (SALINE LOCK) 10ML VIAL/SYR IV SCH ×3 (05:43→21:29)
[2021-12-05] MEDS: CLINDAMYCIN 600MG IV 50 ML IV SCH (05:43)
[2021-12-05] MEDS: FAMOTIDINE (10MG/ML) 2ML VL IV SCH (08:53)
[2021-12-05] MEDS: FUROSEMIDE 20 MG/2 ML VIAL IV SCH (08:53)
[2021-12-05] MEDS: levoFLOXacin 250MG 50 ML IV SCH (08:53)
[2021-12-05] MEDS: METOPROLOL TARTRATE 50 MG TAB PO SCH ×2 (08:54→21:31)
[2021-12-05] MEDS: DIGOXIN 0.125 MG TAB PO SCH (08:54)
[2021-12-05] MEDS: CARVEDILOL 12.5 MG TAB PO SCH ×2 (08:55→21:31)
[2021-12-05] MEDS: APIXABAN 5 MG TAB PO SCH ×2 (08:55→21:30)
[2021-12-05 09:00] VITALS: BP 118/79
[2021-12-05] MEDS: ONDANSETRON HCL 4 MG/2 ML VIAL IV PRN (10:44)
[2021-12-05 13:00] VITALS: BP 132/54
[2021-12-05 17:00] VITALS: BP 114/53
[2021-12-05] MEDS: CLINDAMYCIN HCL 150 MG CAP PO SCH (21:29)
[2021-12-05 22:00] VITALS: BP 118/61
[2021-12-06 05:00] VITALS: BP 120/59
[2021-12-06 06:46] LABS: Potassium 3.9 mmol/L (3.5-5.1)
[2021-12-06] MEDS: CLINDAMYCIN HCL 150 MG CAP PO SCH ×3 (06:50→21:49)
[2021-12-06] MEDS: SODIUM CHLOR 0.9% PF (SALINE LOCK) 10ML VIAL/SYR IV SCH ×3 (06:50→21:45)
[2021-12-06 06:53] LABS: Albumin 3.1 g/dL (3.4-5.0); BUN/Creatinine Ratio 13.1; Calcium 8.3 mg/dL (8.5-10.1); Phosphorus 3.8 mg/dL (2.5-4.90)
[2021-12-06 09:00] VITALS: BP 113/71
[2021-12-06] MEDS: levoFLOXacin 250MG 50 ML IV SCH (09:18)
[2021-12-06] MEDS: FAMOTIDINE (10MG/ML) 2ML VL IV SCH (09:19)
[2021-12-06] MEDS: DAPAGLIFLOZIN 5 MG TAB PO SCH (09:19)
[2021-12-06] MEDS: ONDANSETRON HCL 4 MG/2 ML VIAL IV PRN ×2 (09:19→17:38)
[2021-12-06] MEDS: METOPROLOL TARTRATE 50 MG TAB PO SCH ×2 (09:20→21:51)
[2021-12-06] MEDS: DIGOXIN 0.125 MG TAB PO SCH (09:20)
[2021-12-06] MEDS: CARVEDILOL 12.5 MG TAB PO SCH ×2 (09:21→21:50)
[2021-12-06] MEDS: FUROSEMIDE 20 MG/2 ML VIAL IV SCH (09:21)
[2021-12-06] MEDS: APIXABAN 5 MG TAB PO SCH ×2 (09:21→21:50)
[2021-12-06 13:00] VITALS: BP 120/75
[2021-12-06 17:14] VITALS: BP 111/62
[2021-12-06 22:00] VITALS: BP 128/51
[2021-12-07 05:00] VITALS: BP 120/60
[2021-12-07] MEDS: SODIUM CHLOR 0.9% PF (SALINE LOCK) 10ML VIAL/SYR IV SCH ×3 (05:26→22:39)
[2021-12-07] MEDS: CLINDAMYCIN HCL 150 MG CAP PO SCH ×3 (05:27→22:45)
[2021-12-07 06:06] LABS: Basophils # (auto) 0 10 ^3/uL (0-0.2); Basophils % (auto) 0.7 % (0.0-2.0); Eosinophils # (auto) 0.2 10 ^3/uL (0-0.8); Eosinophils % (auto) 5.3 % (0.0-7.0); Hematocrit 31.9 % (36.0-46.0); Hemoglobin 10.4 g/dL (12.2-16.2); Lymphocytes % (auto) 29.2 % (10.0-50.0); Mean Corpuscular Hemoglobin 27.2 pg (28.0-32.0); Mean Corpuscular Hgb Conc. 32.7 g/dL (32.0-36.0); Mean Corpuscular Volume 83.2 fL (80.0-100.0); Monocytes # (auto) 0.3 10 ^3/uL (0-1.3); Monocytes % (auto) 8.3 % (0.0-12.0); Neutrophils # (auto) 1.8 10 ^3/uL (1.6-8.6); Neutrophils % (auto) 56.5 % (37.0-80.0); Nucleated Red Blood Cells % 0.1 %; Red Blood Cells 3.84 10^6/uL (4.0-5.20); Red Cell Distribution Width 14.8 % (11.8-14.3); White Blood Cell 3.3 10^3/uL (4.4-10.8)
[2021-12-07 06:52] LABS: INR 1.18 (0.9-1.15)
[2021-12-07] MEDS: DAPAGLIFLOZIN 5 MG TAB PO SCH (09:29)
[2021-12-07] MEDS: FAMOTIDINE (10MG/ML) 2ML VL IV SCH (09:29)
[2021-12-07] MEDS: FUROSEMIDE 20 MG/2 ML VIAL IV SCH (09:29)
[2021-12-07 09:30] VITALS: BP 121/82
[2021-12-07] MEDS: CARVEDILOL 12.5 MG TAB PO SCH ×2 (09:30→23:53)
[2021-12-07] MEDS: DIGOXIN 0.125 MG TAB PO SCH (09:30)
[2021-12-07] MEDS: APIXABAN 5 MG TAB PO SCH ×2 (09:30→22:45)
[2021-12-07] MEDS: METOPROLOL TARTRATE 50 MG TAB PO SCH ×2 (09:31→23:52)
[2021-12-07] MEDS: levoFLOXacin 250MG 50 ML IV SCH (09:32)
[2021-12-07 12:54] VITALS: BP 111/53
[2021-12-07 16:38] VITALS: BP 109/72
[2021-12-07 22:00] VITALS: BP 94/52
[2021-12-08 05:00] VITALS: BP 119/38
[2021-12-08] MEDS: SODIUM CHLOR 0.9% PF (SALINE LOCK) 10ML VIAL/SYR IV SCH (05:52)
[2021-12-08] MEDS: CLINDAMYCIN HCL 150 MG CAP PO SCH (05:55)
[2021-12-08 08:50] VITALS: BP 99/63
[2021-12-08] MEDS ORDERED: DAPA1TAB4 PO (09:01)
[2021-12-08] MEDS ORDERED: CLIN300C8 PO (09:01)
[2021-12-08] MEDS: CARVEDILOL 12.5 MG TAB PO SCH (09:35)
[2021-12-08] MEDS: FUROSEMIDE 20 MG/2 ML VIAL IV SCH (09:35)
[2021-12-08] MEDS: DIGOXIN 0.125 MG TAB PO SCH (09:36)
[2021-12-08] MEDS: METOPROLOL TARTRATE 50 MG TAB PO SCH (09:36)
[2021-12-08] MEDS: FAMOTIDINE (10MG/ML) 2ML VL IV SCH (09:37)
[2021-12-08] MEDS: APIXABAN 5 MG TAB PO SCH (09:37)
[2021-12-08] MEDS: levoFLOXacin 250MG 50 ML IV SCH (09:37)
[2021-12-08] MEDS: DAPAGLIFLOZIN 5 MG TAB PO SCH (09:38)
[2021-12-08 10:44] VITALS: BP 99/41
== END 2021-12-08 11:30 | disposition home or self-care (01) | DRG 383 ==
LOC: ER 11:13 → OVERFLOW 23:52 → TELE-CENTR 12-04 16:41
PROVIDERS: ADMIT Nurse Practitioner Family; ATTEND Family Medicine
DX: L03.213 Periorbital cellulitis (principal); I50.23 Acute on chronic systolic (congestive) heart failure; D64.9 Anemia, unspecified; I11.0 Hypertensive heart disease with heart failure; L03.211 Cellulitis of face; Z20.822 Contact with and (suspected) exposure to COVID-19; I48.91 Unspecified atrial fibrillation; R00.8 Other abnormalities of heart beat; N39.0 Urinary tract infection, site not specified; Z86.73 Personal history of transient ischemic attack (TIA), and cerebral infarction without residual deficits; Z82.49 Family history of ischemic heart disease and other diseases of the circulatory system
CPT/HCPCS: 36415; 71045; 71046; 80053; 80069; 80162; 81001; 83735; 83880; 84484; 85025; 85610; 85730; 87040; 87086; 93005; 93306; G0378; J2405; J3490

== ENCOUNTER 2022-01-21 07:29 | Emergency (ER) | payer MEDICAID ==
[~2022-01-21] VITALS: Ht 162.6 cm; Wt 61.3 kg
[~2022-01-21 07:29] MED LIST changes: +CLIN300C8 PO; +DAPA1TAB4 PO
[2022-01-21 10:12] LABS: Alcohol, Urine < 3.0 mg/dL (0-10); Barbiturate Scree,Urine NEGATIVE (NEGATIVE); Opiate Scree,Urine NEGATIVE (NEGATIVE); Phencyclidine Screen, Urine NEGATIVE (NEGATIVE)
[2022-01-21 10:13] LABS: Amphetamine Screen, Urine NEGATIVE (NEGATIVE); Benzodiazephine Screen, Urine NEGATIVE (NEGATIVE); Cannabinoid Screen, Urine NEGATIVE (NEGATIVE); Cocaine Screen, Urine NEGATIVE (NEGATIVE)
[2022-01-21 10:35] LABS: Basophils # (auto) 0 10 ^3/uL (0-0.2); Basophils % (auto) 0.6 % (0.0-2.0); Eosinophils # (auto) 0.1 10 ^3/uL (0-0.8); Eosinophils % (auto) 1.2 % (0.0-7.0); Hematocrit 34.3 % (36.0-46.0); Lymphocytes # (auto) 0.6 10 ^3/uL (0.4-5.4); Lymphocytes % (auto) 14.2 % (10.0-50.0); Mean Corpuscular Hemoglobin 27.4 pg (28.0-32.0); Mean Corpuscular Volume 85.5 fL (80.0-100.0); Monocytes # (auto) 0.2 10 ^3/uL (0-1.3); Monocytes % (auto) 4.6 % (0.0-12.0); Neutrophils # (auto) 3.6 10 ^3/uL (1.6-8.6); Neutrophils % (auto) 79.4 % (37.0-80.0); Red Blood Cells 4.02 10^6/uL (4.0-5.20); Red Cell Distribution Width 17.1 % (11.8-14.3); White Blood Cell 4.5 10^3/uL (4.4-10.8)
[2022-01-21 10:53] LABS: Albumin 4.4 g/dL (3.4-5.0); Calcium 9.1 mg/dL (8.5-10.1); Potassium 4.3 mmol/L (3.5-5.1)
[2022-01-21 11:07] LABS: BUN/Creatinine Ratio 10.9; Total Protein 7.2 g/dL (6.4-8.2)
[2022-01-21] MEDS ORDERED: LACTATED RINGER'S 250 ML IV ONE (11:45)
[2022-01-21 14:00] VITALS: BP 138/74
== END 2022-01-21 14:45 | disposition home or self-care (01) ==
LOC: ER 07:29
DX: R11.2 Nausea with vomiting, unspecified (principal); R19.7 Diarrhea, unspecified; I11.0 Hypertensive heart disease with heart failure; I50.9 Heart failure, unspecified; Z86.73 Personal history of transient ischemic attack (TIA), and cerebral infarction without residual deficits; Z88.1 Allergy status to other antibiotic agents
CPT/HCPCS: 36415; 71045; 80053; 80307; 83735; 83880; 84484; 85025; 93005; 96360

== ENCOUNTER 2022-02-27 02:41 | Emergency (ER) | payer MEDICAID ==
[~2022-02-27] VITALS: Ht 162.6 cm; Wt 64.0 kg
[2022-02-27 07:23] VITALS: BP 142/78
[2022-02-27 10:01] LABS: Basophils # (auto) 0 10 ^3/uL (0-0.2); Basophils % (auto) 0.7 % (0.0-2.0); Eosinophils # (auto) 0.1 10 ^3/uL (0-0.8); Eosinophils % (auto) 1.9 % (0.0-7.0); Hematocrit 31.8 % (36.0-46.0); Hemoglobin 10.2 g/dL (12.2-16.2); Lymphocytes # (auto) 0.7 10 ^3/uL (0.4-5.4); Lymphocytes % (auto) 22.8 % (10.0-50.0); Mean Corpuscular Hemoglobin 27.4 pg (28.0-32.0); Mean Corpuscular Hgb Conc. 32.2 g/dL (32.0-36.0); Mean Corpuscular Volume 85.1 fL (80.0-100.0); Monocytes # (auto) 0.2 10 ^3/uL (0-1.3); Monocytes % (auto) 7.1 % (0.0-12.0); Neutrophils # (auto) 1.9 10 ^3/uL (1.6-8.6); Neutrophils % (auto) 67.5 % (37.0-80.0); Red Blood Cells 3.73 10^6/uL (4.0-5.20); Red Cell Distribution Width 15.7 % (11.8-14.3); White Blood Cell 2.9 10^3/uL (4.4-10.8)
[2022-02-27 10:34] LABS: INR 1.09 (0.9-1.15); Partial Thromboplastin Time 27.4 sec (24.6-33.4)
[2022-02-27 10:56] LABS: Albumin 4.1 g/dL (3.4-5.0); Calcium 8.6 mg/dL (8.5-10.1); Magnesium 1.9 mg/dL (1.6-2.6); Potassium 4.1 mmol/L (3.5-5.1)
[2022-02-27 11:02] LABS: BUN/Creatinine Ratio 22.1; Bilirubin, Total 0.8 mg/dL (0.2-1.0); Total Protein 6.5 g/dL (6.4-8.2)
[2022-02-27 11:54] LABS: Urine Bacteria NONE SEEN /hpf (None Seen); Urine Blood Negative /uL (Negative); Urine Specific Gravity 1.022 (1.001-1.035); Urine WBC 1 /hpf (0 - 5)
[2022-02-27] MEDS ORDERED: PANT40TA2 PO (13:37)
[2022-02-27] MEDS ORDERED: METO-281 PO (13:37)
== END 2022-02-27 13:51 | disposition home or self-care (01) ==
LOC: ER 02:41
DX: K80.20 Calculus of gallbladder without cholecystitis without obstruction (principal); D69.6 Thrombocytopenia, unspecified; I13.0 Hypertensive heart and chronic kidney disease with heart failure and stage 1 through stage 4 chronic kidney disease, or unspecified chronic kidney disease; N18.30 Chronic kidney disease, stage 3 unspecified; I50.9 Heart failure, unspecified; I48.91 Unspecified atrial fibrillation; K21.9 Gastro-esophageal reflux disease without esophagitis; Z86.73 Personal history of transient ischemic attack (TIA), and cerebral infarction without residual deficits; Z95.1 Presence of aortocoronary bypass graft; Z90.89 Acquired absence of other organs; Z79.899 Other long term (current) drug therapy; Z79.2 Long term (current) use of antibiotics; Z88.8 Allergy status to other drugs, medicaments and biological substances; Z88.1 Allergy status to other antibiotic agents
CPT/HCPCS: 36415; 76705; 80053; 81001; 83690; 83735; 85025; 85610; 85730

== ENCOUNTER 2022-03-03 10:50 | Emergency (ER) | payer MEDICAID ==
[~2022-03-03] VITALS: Ht 162.6 cm; Wt 62.0 kg
[~2022-03-03 10:50] MED LIST changes: +METO-281 PO; +PANT40TA2 PO
[2022-03-03 11:37] LABS: Basophils # (auto) 0 10 ^3/uL (0-0.2); Basophils % (auto) 0.8 % (0.0-2.0); Eosinophils # (auto) 0.1 10 ^3/uL (0-0.8); Eosinophils % (auto) 1.7 % (0.0-7.0); Hematocrit 33.9 % (36.0-46.0); Hemoglobin 10.9 g/dL (12.2-16.2); Lymphocytes # (auto) 0.9 10 ^3/uL (0.4-5.4); Lymphocytes % (auto) 15.5 % (10.0-50.0); Mean Corpuscular Hemoglobin 27.6 pg (28.0-32.0); Mean Corpuscular Hgb Conc. 32.2 g/dL (32.0-36.0); Mean Corpuscular Volume 85.5 fL (80.0-100.0); Monocytes # (auto) 0.5 10 ^3/uL (0-1.3); Monocytes % (auto) 8.9 % (0.0-12.0); Neutrophils # (auto) 4.3 10 ^3/uL (1.6-8.6); Neutrophils % (auto) 73.1 % (37.0-80.0); Red Blood Cells 3.97 10^6/uL (4.0-5.20); Red Cell Distribution Width 15.4 % (11.8-14.3); White Blood Cell 5.8 10^3/uL (4.4-10.8)
[2022-03-03 11:59] LABS: Calcium 8.7 mg/dL (8.5-10.1); Magnesium 2.1 mg/dL (1.6-2.6); Potassium 4.9 mmol/L (3.5-5.1)
[2022-03-03 12:05] LABS: Bilirubin, Total 0.9 mg/dL (0.2-1.0); Total Protein 6.4 g/dL (6.4-8.2)
[2022-03-03 12:16] LABS: INR 1.24 (0.9-1.15); Partial Thromboplastin Time 29.9 sec (24.6-33.4)
[2022-03-03 12:26] LABS: BUN/Creatinine Ratio 17.3
[2022-03-03] MEDS ORDERED: HYDROcodone-ACET 5/325MG TAB PO ONE (18:45)
[2022-03-03 18:47] VITALS: BP 146/105
== END 2022-03-03 19:40 | disposition home or self-care (01) ==
LOC: ER 10:50
DX: K80.50 Calculus of bile duct without cholangitis or cholecystitis without obstruction (principal); I11.0 Hypertensive heart disease with heart failure; I50.9 Heart failure, unspecified; I48.91 Unspecified atrial fibrillation; K21.9 Gastro-esophageal reflux disease without esophagitis; Z86.73 Personal history of transient ischemic attack (TIA), and cerebral infarction without residual deficits; Z95.1 Presence of aortocoronary bypass graft; Z90.89 Acquired absence of other organs; Z79.2 Long term (current) use of antibiotics; Z79.899 Other long term (current) drug therapy; Z88.8 Allergy status to other drugs, medicaments and biological substances; Z88.1 Allergy status to other antibiotic agents
CPT/HCPCS: 36415; 80053; 83735; 84484; 85025; 85610; 85730; 93005

== ENCOUNTER 2022-03-16 13:14 | Inpatient (IN) | payer MEDICAID ==
[2022-03-15 10:16] LABS: Basophils # (auto) 0 10 ^3/uL (0-0.2); Basophils % (auto) 0.6 % (0.0-2.0); Eosinophils # (auto) 0.1 10 ^3/uL (0-0.8); Hematocrit 33.8 % (36.0-46.0); Hemoglobin 11.1 g/dL (12.2-16.2); Lymphocytes # (auto) 0.6 10 ^3/uL (0.4-5.4); Mean Corpuscular Hemoglobin 27.7 pg (28.0-32.0); Mean Corpuscular Hgb Conc. 32.9 g/dL (32.0-36.0); Monocytes # (auto) 0.3 10 ^3/uL (0-1.3); Monocytes % (auto) 7.2 % (0.0-12.0); Neutrophils # (auto) 2.9 10 ^3/uL (1.6-8.6); Neutrophils % (auto) 74.2 % (37.0-80.0); Nucleated Red Blood Cells % 0.1 %; Red Blood Cells 4.03 10^6/uL (4.0-5.20); Red Cell Distribution Width 15.1 % (11.8-14.3); White Blood Cell 3.9 10^3/uL (4.4-10.8)
[2022-03-15 10:24] LABS: INR 1.22 (0.9-1.15); Partial Thromboplastin Time 29.4 sec (24.6-33.4)
[2022-03-15 10:57] LABS: Albumin 3.9 g/dL (3.4-5.0); Calcium 8.5 mg/dL (8.5-10.1); Potassium 3.6 mmol/L (3.5-5.1)
[2022-03-15 11:01] LABS: BUN/Creatinine Ratio 7.8; Bilirubin, Total 0.9 mg/dL (0.2-1.0); Total Protein 6.5 g/dL (6.4-8.2)
[~2022-03-16] VITALS: Ht 162.6 cm; Wt 59.5 kg
[~2022-03-16 13:14] MED LIST changes: -CLIN300C8 PO; -METO-281 PO; -PANT40TA2 PO; -POLY33504 PO
[2022-03-16] MEDS ORDERED: MORPHINE SULFATE INJ 2 MG/ml SYRG IV PRN ×2 (15:00)
[2022-03-16] MEDS ORDERED: ONDANSETRON HCL 4 MG/2 ML VIAL IV PRN (15:00)
[2022-03-16] MEDS ORDERED: NITROGLYCERIN 0.4 MG SL TAB SL PRN (15:00)
[2022-03-16] MEDS ORDERED: DOCUSATE SOD 100 MG CAP PO PRN (15:00)
[2022-03-16] MEDS: SODIUM CHLORIDE 0.9% 1,000 ML IV SCH (16:00)
[2022-03-16] MEDS: fentaNYL CITRATE 100 MCG/2 ML VL ONE ×2 (16:32→16:38)
[2022-03-16] MEDS: MIDAZOLAM HCL 5 MG/ML-1ML VIAL ONE ×2 (16:32→16:38)
[2022-03-16] MEDS: diphenhdrAMINE HCL 50 MG/1 ML VL ONE ×2 (16:32→16:38)
[2022-03-16 20:12] VITALS: BP 135/65
[2022-03-16 22:10] VITALS: BP 135/65
[2022-03-17] MEDS: SODIUM CHLORIDE 0.9% 1,000 ML IV SCH ×2 (02:07→22:38)
[2022-03-17 05:12] VITALS: BP 129/67
[2022-03-17 08:00] VITALS: BP 142/80
[2022-03-17 12:00] VITALS: BP 151/96
[2022-03-17] MEDS ORDERED: PANTOPRAZOLE 40 MG TAB PO ONE (14:45)
[2022-03-17 16:00] VITALS: BP 144/85
[2022-03-17] MEDS: METOPROLOL TARTRATE 50 MG TAB PO SCH ×2 (17:58→22:37)
[2022-03-17] MEDS: HYDROcodone-ACET 5/325MG TAB PO PRN (20:31)
[2022-03-17 22:00] VITALS: BP 123/78
[2022-03-17] MEDS: TEMAZEPAM 15 MG CAP PO PRN (22:38)
[2022-03-18 05:00] VITALS: BP 119/70
[2022-03-18 06:13] LABS: Basophils # (auto) 0 10 ^3/uL (0-0.2); Basophils % (auto) 0.6 % (0.0-2.0); Eosinophils # (auto) 0.1 10 ^3/uL (0-0.8); Eosinophils % (auto) 3.3 % (0.0-7.0); Hematocrit 37.9 % (36.0-46.0); Hemoglobin 12.3 g/dL (12.2-16.2); Lymphocytes # (auto) 1.2 10 ^3/uL (0.4-5.4); Mean Corpuscular Hgb Conc. 32.5 g/dL (32.0-36.0); Monocytes # (auto) 0.3 10 ^3/uL (0-1.3); Monocytes % (auto) 8.5 % (0.0-12.0); Neutrophils # (auto) 1.7 10 ^3/uL (1.6-8.6); Neutrophils % (auto) 51.6 % (37.0-80.0); Nucleated Red Blood Cells % 0.1 %; Red Blood Cells 4.41 10^6/uL (4.0-5.20); Red Cell Distribution Width 15.1 % (11.8-14.3); White Blood Cell 3.3 10^3/uL (4.4-10.8)
[2022-03-18] MEDS: PANTOPRAZOLE 40 MG TAB PO SCH ×2 (06:19→10:15)
[2022-03-18 06:31] LABS: Albumin 3.9 g/dL (3.4-5.0); Calcium 8.6 mg/dL (8.5-10.1); Potassium 3.6 mmol/L (3.5-5.1)
[2022-03-18 06:46] LABS: BUN/Creatinine Ratio 16.7; Bilirubin, Total 0.8 mg/dL (0.2-1.0); Total Protein 6.2 g/dL (6.4-8.2)
[2022-03-18 08:00] VITALS: BP 147/99
[2022-03-18] MEDS: METOPROLOL TARTRATE 50 MG TAB PO SCH ×2 (10:15→22:52)
[2022-03-18 12:00] VITALS: BP 125/70
[2022-03-18] MEDS: HYDROcodone-ACET 5/325MG TAB PO PRN ×2 (12:58→22:54)
[2022-03-18 16:00] VITALS: BP 136/77
[2022-03-18] MEDS: SODIUM CHLORIDE 0.9% 1,000 ML IV SCH (17:00)
[2022-03-18 21:20] VITALS: BP 130/84
[2022-03-18] MEDS: TEMAZEPAM 15 MG CAP PO PRN (22:53)
[2022-03-19 04:51] VITALS: BP 118/78
[2022-03-19 05:13] LABS: Basophils # (auto) 0 10 ^3/uL (0-0.2); Basophils % (auto) 1.6 % (0.0-2.0); Eosinophils # (auto) 0.1 10 ^3/uL (0-0.8); Eosinophils % (auto) 2.5 % (0.0-7.0); Hematocrit 28.8 % (36.0-46.0); Hemoglobin 9.5 g/dL (12.2-16.2); Lymphocytes # (auto) 0.8 10 ^3/uL (0.4-5.4); Lymphocytes % (auto) 30.8 % (10.0-50.0); Mean Corpuscular Hemoglobin 27.3 pg (28.0-32.0); Mean Corpuscular Volume 82.9 fL (80.0-100.0); Monocytes # (auto) 0.3 10 ^3/uL (0-1.3); Monocytes % (auto) 9.5 % (0.0-12.0); Neutrophils # (auto) 1.5 10 ^3/uL (1.6-8.6); Neutrophils % (auto) 55.6 % (37.0-80.0); Nucleated Red Blood Cells % 0.2 %; Red Blood Cells 3.47 10^6/uL (4.0-5.20); Red Cell Distribution Width 14.8 % (11.8-14.3); White Blood Cell 2.6 10^3/uL (4.4-10.8)
[2022-03-19 05:24] LABS: Potassium 3.7 mmol/L (3.5-5.1)
[2022-03-19 05:28] LABS: Albumin 3.1 g/dL (3.4-5.0); BUN/Creatinine Ratio 18.2; Calcium 8.1 mg/dL (8.5-10.1)
[2022-03-19 05:30] LABS: Bilirubin, Total 0.5 mg/dL (0.2-1.0); Total Protein 5.2 g/dL (6.4-8.2)
[2022-03-19] MEDS: SODIUM CHLORIDE 0.9% 1,000 ML IV SCH ×3 (07:03→23:17)
[2022-03-19 09:00] VITALS: BP 130/83
[2022-03-19] MEDS: PANTOPRAZOLE 40 MG TAB PO SCH (09:59)
[2022-03-19] MEDS: METOPROLOL TARTRATE 50 MG TAB PO SCH ×2 (09:59→22:24)
[2022-03-19] MEDS: DOCUSATE SOD 100 MG CAP PO SCH ×2 (12:40→22:00)
[2022-03-19] MEDS: POLYETHYLENE GLYCOL 17 GM PWDR PO SCH ×2 (12:41→22:00)
[2022-03-19 13:00] VITALS: BP 119/74
[2022-03-19] MEDS: HYDROcodone-ACET 5/325MG TAB PO PRN ×2 (14:03→22:24)
[2022-03-19 17:00] VITALS: BP 124/88
[2022-03-19 22:00] VITALS: BP 159/85
[2022-03-19] MEDS ORDERED: APIXABAN 5 MG TAB PO SCH (22:00)
[2022-03-19] MEDS: TEMAZEPAM 15 MG CAP PO PRN (23:19)
[2022-03-20 05:00] VITALS: BP 120/78
[2022-03-20 06:09] LABS: Basophils # (auto) 0 10 ^3/uL (0-0.2); Basophils % (auto) 0.7 % (0.0-2.0); Eosinophils # (auto) 0.1 10 ^3/uL (0-0.8); Eosinophils % (auto) 2.3 % (0.0-7.0); Hematocrit 31.5 % (36.0-46.0); Hemoglobin 10.3 g/dL (12.2-16.2); Lymphocytes % (auto) 34.1 % (10.0-50.0); Mean Corpuscular Hemoglobin 27.3 pg (28.0-32.0); Mean Corpuscular Hgb Conc. 32.6 g/dL (32.0-36.0); Mean Corpuscular Volume 83.6 fL (80.0-100.0); Monocytes # (auto) 0.4 10 ^3/uL (0-1.3); Monocytes % (auto) 12.6 % (0.0-12.0); Neutrophils # (auto) 1.4 10 ^3/uL (1.6-8.6); Neutrophils % (auto) 50.3 % (37.0-80.0); Nucleated Red Blood Cells % 0.2 %; Red Blood Cells 3.77 10^6/uL (4.0-5.20); White Blood Cell 2.9 10^3/uL (4.4-10.8)
[2022-03-20 06:25] LABS: Albumin 3.4 g/dL (3.4-5.0); Calcium 8.2 mg/dL (8.5-10.1)
[2022-03-20 06:30] LABS: BUN/Creatinine Ratio 33.3; Bilirubin, Total 0.6 mg/dL (0.2-1.0); Total Protein 5.6 g/dL (6.4-8.2)
[2022-03-20] MEDS ORDERED: CALCIUM GLUC 1,000mg/50ml-NS 50 ML IV ONE (07:45)
[2022-03-20] MEDS: METOPROLOL TARTRATE 50 MG TAB PO SCH ×2 (10:00→21:48)
[2022-03-20] MEDS: PANTOPRAZOLE 40 MG TAB PO SCH (10:00)
[2022-03-20] MEDS: DOCUSATE SOD 100 MG CAP PO SCH ×2 (10:00→21:49)
[2022-03-20] MEDS: POLYETHYLENE GLYCOL 17 GM PWDR PO SCH ×2 (10:00→21:49)
[2022-03-20 12:30] VITALS: BP 139/67
[2022-03-20] MEDS: HYDROcodone-ACET 5/325MG TAB PO PRN (12:48)
[2022-03-20] MEDS: SODIUM CHLORIDE 0.9% 1,000 ML IV SCH ×2 (12:48→22:45)
[2022-03-20 16:30] VITALS: BP 143/57
[2022-03-20] MEDS: TEMAZEPAM 15 MG CAP PO PRN (21:48)
[2022-03-20 22:00] VITALS: BP 135/92
[2022-03-21 05:00] VITALS: BP 147/81
[2022-03-21 06:14] LABS: Basophils # (auto) 0 10 ^3/uL (0-0.2); Basophils % (auto) 0.8 % (0.0-2.0); Eosinophils # (auto) 0.1 10 ^3/uL (0-0.8); Eosinophils % (auto) 1.6 % (0.0-7.0); Hemoglobin 10.6 g/dL (12.2-16.2); Lymphocytes % (auto) 24.8 % (10.0-50.0); Mean Corpuscular Hemoglobin 27.8 pg (28.0-32.0); Mean Corpuscular Hgb Conc. 33.2 g/dL (32.0-36.0); Mean Corpuscular Volume 83.8 fL (80.0-100.0); Monocytes # (auto) 0.3 10 ^3/uL (0-1.3); Monocytes % (auto) 8.7 % (0.0-12.0); Neutrophils # (auto) 2.5 10 ^3/uL (1.6-8.6); Neutrophils % (auto) 64.1 % (37.0-80.0); Nucleated Red Blood Cells % 0.1 %; Red Blood Cells 3.82 10^6/uL (4.0-5.20); Red Cell Distribution Width 15.3 % (11.8-14.3); White Blood Cell 3.9 10^3/uL (4.4-10.8)
[2022-03-21 06:17] LABS: Potassium 4.4 mmol/L (3.5-5.1)
[2022-03-21 06:24] LABS: Albumin 3.6 g/dL (3.4-5.0); Bilirubin, Total 0.8 mg/dL (0.2-1.0); Calcium 8.4 mg/dL (8.5-10.1); Total Protein 5.6 g/dL (6.4-8.2)
[2022-03-21 09:00] VITALS: BP 146/93
[2022-03-21] MEDS: DOCUSATE SOD 100 MG CAP PO SCH (09:29)
[2022-03-21] MEDS: POLYETHYLENE GLYCOL 17 GM PWDR PO SCH (09:30)
[2022-03-21] MEDS: PANTOPRAZOLE 40 MG TAB PO SCH (09:33)
[2022-03-21] MEDS: METOPROLOL TARTRATE 50 MG TAB PO SCH (09:33)
[2022-03-21] MEDS: SODIUM CHLORIDE 0.9% 1,000 ML IV SCH (09:37)
[2022-03-21] MEDS: HYDROcodone-ACET 5/325MG TAB PO PRN (11:09)
[2022-03-21 12:00] VITALS: BP 134/78
[2022-03-21 14:11] VITALS: BP 134/78
== END 2022-03-21 14:50 | disposition home or self-care (01) | DRG 254 ==
LOC: GI 13:14 → OVERFLOW 14:46 → EAST 18:22
PROVIDERS: ADMIT Family Medicine; ATTEND Student in an Organized Health Care Education/Training Program
PROC: 0DBL8ZZ Excision of Transverse Colon, Via Natural or Artificial Opening Endoscopic (ICD-10-PCS; principal; 2022-03-16 16:30)
DX: K64.9 Unspecified hemorrhoids (principal); D61.818 Other pancytopenia; N17.9 Acute kidney failure, unspecified; K92.2 Gastrointestinal hemorrhage, unspecified; I11.0 Hypertensive heart disease with heart failure; I50.20 Unspecified systolic (congestive) heart failure; K63.5 Polyp of colon; K64.8 Other hemorrhoids; Z20.822 Contact with and (suspected) exposure to COVID-19; I48.91 Unspecified atrial fibrillation; J44.9 Chronic obstructive pulmonary disease, unspecified; K21.9 Gastro-esophageal reflux disease without esophagitis; R26.89 Other abnormalities of gait and mobility; K59.00 Constipation, unspecified; Z80.51 Family history of malignant neoplasm of kidney; Z59.00 Homelessness unspecified; Z82.49 Family history of ischemic heart disease and other diseases of the circulatory system; Z86.73 Personal history of transient ischemic attack (TIA), and cerebral infarction without residual deficits; Q43.8 Other specified congenital malformations of intestine; Z88.1 Allergy status to other antibiotic agents
CPT/HCPCS: 36415; 80053; 85025; 85610; 85730; 97163; G0378; J2250; J2405

== ENCOUNTER 2022-04-01 01:12 | Inpatient (IN) | payer MEDICAID ==
[~2022-04-01] VITALS: Ht 162.6 cm; Wt 60.7 kg
[2022-04-01 02:04] LABS: Basophils # (auto) 0 10 ^3/uL (0-0.2); Basophils % (auto) 0.6 % (0.0-2.0); Eosinophils # (auto) 0.1 10 ^3/uL (0-0.8); Eosinophils % (auto) 1.8 % (0.0-7.0); Hematocrit 31.2 % (36.0-46.0); Hemoglobin 10.1 g/dL (12.2-16.2); Lymphocytes # (auto) 0.9 10 ^3/uL (0.4-5.4); Lymphocytes % (auto) 13.9 % (10.0-50.0); Mean Corpuscular Hemoglobin 27.5 pg (28.0-32.0); Mean Corpuscular Hgb Conc. 32.4 g/dL (32.0-36.0); Monocytes # (auto) 0.5 10 ^3/uL (0-1.3); Monocytes % (auto) 7.1 % (0.0-12.0); Neutrophils # (auto) 5.1 10 ^3/uL (1.6-8.6); Neutrophils % (auto) 76.6 % (37.0-80.0); Red Blood Cells 3.68 10^6/uL (4.0-5.20); Red Cell Distribution Width 15.4 % (11.8-14.3); White Blood Cell 6.6 10^3/uL (4.4-10.8)
[2022-04-01 02:18] LABS: Albumin 4.2 g/dL (3.4-5.0); BUN/Creatinine Ratio 20.3; Calcium 8.8 mg/dL (8.5-10.1); Potassium 4.5 mmol/L (3.5-5.1)
[2022-04-01 02:27] LABS: Bilirubin, Total 0.8 mg/dL (0.2-1.0); Total Protein 6.5 g/dL (6.4-8.2)
[2022-04-01] MEDS: dilTIAZem 25 MG/5 ML VIAL IV ONE ×2 (05:02→08:41)
[2022-04-01] MEDS: DAPAGLIFLOZIN 10 MG PO SCH (10:00)
[2022-04-01] MEDS ORDERED: MORPHINE SULFATE INJ 2 MG/ml SYRG IV PRN (11:00)
[2022-04-01] MEDS ORDERED: NITROGLYCERIN 0.4 MG SL TAB SL PRN (11:00)
[2022-04-01] MEDS ORDERED: DOCUSATE SOD 100 MG CAP PO PRN (11:00)
[2022-04-01 11:59] LABS: Magnesium 2.4 mg/dL (1.6-2.6); Phosphorus 3.7 mg/dL (2.5-4.90)
[2022-04-01 12:23] LABS: Urine Bacteria NONE SEEN /hpf (None Seen); Urine Blood Negative /uL (Negative); Urine Hyaline Cast FEW /lpf (0 - 2); Urine Mucus FEW (None Seen); Urine Specific Gravity 1.025 (1.001-1.035); Urine WBC <1 /hpf (0 - 5)
[2022-04-01] MEDS: MORPHINE SULFATE INJ 2 MG/ml SYRG IV PRN ×2 (12:32→22:26)
[2022-04-01] MEDS: ONDANSETRON HCL 4 MG/2 ML VIAL IV PRN ×2 (12:32→22:26)
[2022-04-01] MEDS ORDERED: DIGOXIN 0.25 MG TAB PO ONE (13:30)
[2022-04-01 15:40] LABS: Creatinine, Urine 152 mg/dL (30.0-125.0); Sodium Urine 153 mmol/L (40-220)
[2022-04-01 16:18] LABS: % Iron Saturation 7.8 % (15-50)
[2022-04-01 16:52] LABS: Folate (Folic Acid) 10.52 ng/mL (5.38-24)
[2022-04-01] MEDS ORDERED: DOCUSATE SOD 100 MG CAP PO SCH (22:00)
[2022-04-01] MEDS: APIXABAN 5 MG TAB PO SCH (22:24)
[2022-04-01] MEDS: METOPROLOL TARTRATE 25 MG TAB PO SCH (22:25)
[2022-04-02 06:11] LABS: Basophils # (auto) 0 10 ^3/uL (0-0.2); Eosinophils # (auto) 0.1 10 ^3/uL (0-0.8); Eosinophils % (auto) 2.6 % (0.0-7.0); Hematocrit 27.7 % (36.0-46.0); Hemoglobin 9.1 g/dL (12.2-16.2); Lymphocytes # (auto) 0.7 10 ^3/uL (0.4-5.4); Lymphocytes % (auto) 27.2 % (10.0-50.0); Mean Corpuscular Volume 84.9 fL (80.0-100.0); Monocytes # (auto) 0.3 10 ^3/uL (0-1.3); Monocytes % (auto) 9.4 % (0.0-12.0); Neutrophils # (auto) 1.6 10 ^3/uL (1.6-8.6); Neutrophils % (auto) 59.8 % (37.0-80.0); Nucleated Red Blood Cells % 0.1 %; Red Blood Cells 3.27 10^6/uL (4.0-5.20); Red Cell Distribution Width 15.4 % (11.8-14.3); White Blood Cell 2.7 10^3/uL (4.4-10.8)
[2022-04-02 06:19] LABS: Calcium 8.6 mg/dL (8.5-10.1); Potassium 4.4 mmol/L (3.5-5.1)
[2022-04-02 06:26] LABS: Albumin 3.4 g/dL (3.4-5.0); BUN/Creatinine Ratio 21.6; Bilirubin, Total 0.9 mg/dL (0.2-1.0); Total Protein 5.6 g/dL (6.4-8.2)
[2022-04-02] MEDS: METOPROLOL TARTRATE 25 MG TAB PO SCH ×2 (09:59→22:33)
[2022-04-02] MEDS: APIXABAN 5 MG TAB PO SCH (09:59)
[2022-04-02] MEDS: DAPAGLIFLOZIN 10 MG PO SCH (10:00)
[2022-04-02] MEDS: PANTOPRAZOLE 40 MG TAB PO SCH (10:00)
[2022-04-02] MEDS: DIGOXIN 0.125 MG TAB PO SCH (10:00)
[2022-04-02] MEDS ORDERED: FUROSEMIDE 20 MG TAB PO SCH (10:00)
[2022-04-02] MEDS: LISINOPRIL 10 MG TAB PO SCH (10:01)
[2022-04-02] MEDS: HYDROcodone-ACET 5/325MG TAB PO PRN ×2 (12:33→19:37)
[2022-04-02 22:00] VITALS: BP 133/68
[2022-04-02] MEDS: APIXABAN 2.5 MG TAB PO SCH (22:32)
[2022-04-02] MEDS ORDERED: INFLUENZA QUAD 2022-2023 0.5 ML SYRG IM ONE (23:15)
[2022-04-03] MEDS: diphenhdrAMINE HCL 25 MG CAP PO PRN ×3 (00:21→21:35)
[2022-04-03 05:00] VITALS: BP 104/62
[2022-04-03 06:33] LABS: Basophils # (auto) 0 10 ^3/uL (0-0.2); Basophils % (auto) 0.7 % (0.0-2.0); Eosinophils # (auto) 0.1 10 ^3/uL (0-0.8); Eosinophils % (auto) 2.8 % (0.0-7.0); Hematocrit 27.4 % (36.0-46.0); Hemoglobin 9.2 g/dL (12.2-16.2); Lymphocytes # (auto) 0.8 10 ^3/uL (0.4-5.4); Mean Corpuscular Hemoglobin 27.9 pg (28.0-32.0); Mean Corpuscular Hgb Conc. 33.5 g/dL (32.0-36.0); Mean Corpuscular Volume 83.3 fL (80.0-100.0); Monocytes # (auto) 0.3 10 ^3/uL (0-1.3); Monocytes % (auto) 10.6 % (0.0-12.0); Neutrophils # (auto) 1.6 10 ^3/uL (1.6-8.6); Neutrophils % (auto) 55.9 % (37.0-80.0); Nucleated Red Blood Cells % 0.1 %; Red Blood Cells 3.29 10^6/uL (4.0-5.20); Red Cell Distribution Width 15.1 % (11.8-14.3); White Blood Cell 2.8 10^3/uL (4.4-10.8)
[2022-04-03 06:58] LABS: Calcium 8.7 mg/dL (8.5-10.1); Potassium 4.1 mmol/L (3.5-5.1)
[2022-04-03 07:03] LABS: INR 1.21 (0.9-1.15); Partial Thromboplastin Time 28.6 sec (24.6-33.4)
[2022-04-03 09:00] VITALS: BP 131/67
[2022-04-03] MEDS: DAPAGLIFLOZIN 10 MG PO SCH (10:00)
[2022-04-03] MEDS ORDERED: PNEUMOCOCCAL VACC POLYS 25 MCG/0.5 ML VIAL IM ONE (10:15)
[2022-04-03] MEDS: DIGOXIN 0.125 MG TAB PO SCH (10:34)
[2022-04-03] MEDS: PANTOPRAZOLE 40 MG TAB PO SCH (10:34)
[2022-04-03] MEDS: LISINOPRIL 10 MG TAB PO SCH (10:34)
[2022-04-03] MEDS: METOPROLOL TARTRATE 25 MG TAB PO SCH ×2 (10:35→21:35)
[2022-04-03] MEDS: APIXABAN 2.5 MG TAB PO SCH ×2 (10:35→21:35)
[2022-04-03 13:00] VITALS: BP 134/76
[2022-04-03 16:50] VITALS: BP 141/90
[2022-04-03 22:00] VITALS: BP 138/86
[2022-04-04 05:00] VITALS: BP 134/81
[2022-04-04 06:32] LABS: Basophils # (auto) 0 10 ^3/uL (0-0.2); Basophils % (auto) 0.7 % (0.0-2.0); Eosinophils # (auto) 0.1 10 ^3/uL (0-0.8); Eosinophils % (auto) 2.5 % (0.0-7.0); Hematocrit 27.8 % (36.0-46.0); Hemoglobin 9.3 g/dL (12.2-16.2); Lymphocytes # (auto) 0.7 10 ^3/uL (0.4-5.4); Lymphocytes % (auto) 26.8 % (10.0-50.0); Mean Corpuscular Hgb Conc. 33.6 g/dL (32.0-36.0); Mean Corpuscular Volume 83.3 fL (80.0-100.0); Monocytes # (auto) 0.3 10 ^3/uL (0-1.3); Monocytes % (auto) 11.5 % (0.0-12.0); Neutrophils # (auto) 1.5 10 ^3/uL (1.6-8.6); Neutrophils % (auto) 58.5 % (37.0-80.0); Red Blood Cells 3.34 10^6/uL (4.0-5.20); Red Cell Distribution Width 15.3 % (11.8-14.3); White Blood Cell 2.5 10^3/uL (4.4-10.8)
[2022-04-04 07:09] LABS: Potassium 4.5 mmol/L (3.5-5.1)
[2022-04-04 07:19] LABS: BUN/Creatinine Ratio 20.2; Calcium 8.7 mg/dL (8.5-10.1)
[2022-04-04 08:45] VITALS: BP 143/73
[2022-04-04] MEDS: DAPAGLIFLOZIN 10 MG PO SCH (10:00)
[2022-04-04] MEDS: PANTOPRAZOLE 40 MG TAB PO SCH (10:01)
[2022-04-04] MEDS: DIGOXIN 0.125 MG TAB PO SCH (10:01)
[2022-04-04] MEDS: APIXABAN 2.5 MG TAB PO SCH (10:01)
[2022-04-04] MEDS: LISINOPRIL 10 MG TAB PO SCH (10:02)
[2022-04-04] MEDS: METOPROLOL TARTRATE 25 MG TAB PO SCH (10:03)
[2022-04-04] MEDS ORDERED: APIX5TAB PO (10:18)
[2022-04-04] MEDS ORDERED: DIGO1TAB48 PO (10:18)
[2022-04-04] MEDS ORDERED: LISI-716 PO (10:18)
[2022-04-04] MEDS ORDERED: MET25T PO (10:18)
[2022-04-04 13:05] VITALS: BP 143/73
[2022-04-04 13:19] VITALS: BP 111/79
== END 2022-04-04 13:45 | disposition home or self-care (01) | DRG 201 ==
LOC: ER 01:12 → TELE 11:04 → TELE-WESTW 04-02 21:10
PROVIDERS: ADMIT Nurse Practitioner Family; ATTEND Nurse Practitioner Family
DX: I48.91 Unspecified atrial fibrillation (principal); D69.6 Thrombocytopenia, unspecified; N17.9 Acute kidney failure, unspecified; I13.0 Hypertensive heart and chronic kidney disease with heart failure and stage 1 through stage 4 chronic kidney disease, or unspecified chronic kidney disease; I50.42 Chronic combined systolic (congestive) and diastolic (congestive) heart failure; F41.9 Anxiety disorder, unspecified; I49.3 Ventricular premature depolarization; R06.03 Acute respiratory distress; D64.9 Anemia, unspecified; G62.9 Polyneuropathy, unspecified; K21.9 Gastro-esophageal reflux disease without esophagitis; N18.30 Chronic kidney disease, stage 3 unspecified; Z59.00 Homelessness unspecified; Z80.51 Family history of malignant neoplasm of kidney; Z95.1 Presence of aortocoronary bypass graft; Z79.01 Long term (current) use of anticoagulants; Z82.49 Family history of ischemic heart disease and other diseases of the circulatory system; Z86.73 Personal history of transient ischemic attack (TIA), and cerebral infarction without residual deficits; Z88.1 Allergy status to other antibiotic agents; Z88.8 Allergy status to other drugs, medicaments and biological substances
CPT/HCPCS: 36415; 71045; 78582; 80048; 80053; 81001; 82270; 82570; 82607; 82746; 83540; 83550; 83735; 83880; 84100; 84300; 84484; 85025; 85045; 85379; 85610; 85730; 87081; 87426; 93005; 93306; 93970; 96374; 96375; G0378; J2405

== ENCOUNTER 2022-05-15 13:32 | Emergency (ER) | payer MEDICAID ==
[~2022-05-15] VITALS: Ht 162.6 cm; Wt 58.4 kg
[2022-05-15] MEDS ORDERED: KETOROLAC TROMETH 30 MG/ML 1ML VIAL IV ONE (14:00)
[2022-05-15] MEDS ORDERED: SODIUM CHLORIDE 0.9% 1,000 ML IV ONE (14:00)
[2022-05-15 15:06] LABS: Basophils # (auto) 0 10 ^3/uL (0-0.2); Basophils % (auto) 0.5 % (0.0-2.0); Eosinophils # (auto) 0.1 10 ^3/uL (0-0.8); Eosinophils % (auto) 1.8 % (0.0-7.0); Hematocrit 32.9 % (36.0-46.0); Hemoglobin 10.6 g/dL (12.2-16.2); Lymphocytes # (auto) 0.6 10 ^3/uL (0.4-5.4); Lymphocytes % (auto) 12.4 % (10.0-50.0); Mean Corpuscular Hemoglobin 27.2 pg (28.0-32.0); Mean Corpuscular Hgb Conc. 32.3 g/dL (32.0-36.0); Monocytes # (auto) 0.3 10 ^3/uL (0-1.3); Monocytes % (auto) 6.1 % (0.0-12.0); Neutrophils # (auto) 3.9 10 ^3/uL (1.6-8.6); Neutrophils % (auto) 79.2 % (37.0-80.0); Nucleated Red Blood Cells % 0.1 %; Red Blood Cells 3.91 10^6/uL (4.0-5.20); White Blood Cell 4.9 10^3/uL (4.4-10.8)
[2022-05-15 15:43] LABS: Potassium 4.2 mmol/L (3.5-5.1)
[2022-05-15 15:47] LABS: Albumin 4.1 g/dL (3.4-5.0); Calcium 9.1 mg/dL (8.5-10.1); Magnesium 2.2 mg/dL (1.6-2.6)
[2022-05-15 15:49] LABS: Bilirubin, Total 0.8 mg/dL (0.2-1.0); Total Protein 6.8 g/dL (6.4-8.2)
[2022-05-15] MEDS ORDERED: DICL50TA2 PO (18:15)
[2022-05-15] MEDS ORDERED: CYCL-837 PO (18:15)
[2022-05-15 18:21] LABS: Urine Bacteria NONE SEEN /hpf (None Seen); Urine Blood Negative /uL (Negative); Urine Specific Gravity 1.016 (1.001-1.035); Urine WBC <1 /hpf (0 - 5)
[2022-05-15 18:29] VITALS: BP 142/88
== END 2022-05-15 18:29 | disposition home or self-care (01) ==
LOC: ER 13:32
DX: S33.5XXA Sprain of ligaments of lumbar spine, initial encounter (principal); I11.0 Hypertensive heart disease with heart failure; I50.9 Heart failure, unspecified; K21.9 Gastro-esophageal reflux disease without esophagitis; M79.18 Myalgia, other site; Z88.1 Allergy status to other antibiotic agents; Z86.73 Personal history of transient ischemic attack (TIA), and cerebral infarction without residual deficits; W18.39XA Other fall on same level, initial encounter; Y93.89 Activity, other specified; Y92.89 Other specified places as the place of occurrence of the external cause; Y99.8 Other external cause status
CPT/HCPCS: 36415; 72131; 80053; 81001; 83735; 85025; 96361; 96374; 99284; J1885; J7030

== ENCOUNTER 2022-06-15 11:17 | Inpatient (IN) | payer MEDICAID ==
[~2022-06-15] VITALS: Ht 162.6 cm; Wt 51.5 kg
[~2022-06-15 11:17] MED LIST changes: +CYCL-837 PO; +DICL50TA2 PO; +LEVO500T31 PO; +METH4PAK PO; +PROM1SOL4 PO
[2022-06-15 12:09] LABS: Basophils # (auto) 0 10 ^3/uL (0-0.2); Basophils % (auto) 0.3 % (0.0-2.0); Eosinophils # (auto) 0 10 ^3/uL (0-0.8); Eosinophils % (auto) 0.6 % (0.0-7.0); Hematocrit 31.2 % (36.0-46.0); Hemoglobin 10.2 g/dL (12.2-16.2); Lymphocytes # (auto) 0.5 10 ^3/uL (0.4-5.4); Lymphocytes % (auto) 12.4 % (10.0-50.0); Mean Corpuscular Hemoglobin 28.1 pg (28.0-32.0); Mean Corpuscular Hgb Conc. 32.6 g/dL (32.0-36.0); Mean Corpuscular Volume 86.1 fL (80.0-100.0); Monocytes # (auto) 0.3 10 ^3/uL (0-1.3); Monocytes % (auto) 7.7 % (0.0-12.0); Neutrophils # (auto) 3.4 10 ^3/uL (1.6-8.6); Nucleated Red Blood Cells % 0.1 %; Red Blood Cells 3.62 10^6/uL (4.0-5.20); Red Cell Distribution Width 17.2 % (11.8-14.3); White Blood Cell 4.3 10^3/uL (4.4-10.8)
[2022-06-15 12:15] LABS: Albumin 4.1 g/dL (3.4-5.0); Calcium 8.9 mg/dL (8.5-10.1); Potassium 4.2 mmol/L (3.5-5.1)
[2022-06-15 12:17] LABS: BUN/Creatinine Ratio 15.2; Lactic Acid w/Reflex 2.2 mmol/L (0.4-2.0)
[2022-06-15 12:19] LABS: Bilirubin, Total 2.4 mg/dL (0.2-1.0); Total Protein 6.6 g/dL (6.4-8.2)
[2022-06-15 13:10] LABS: Urine Bacteria NONE SEEN /hpf (None Seen); Urine Blood Negative /uL (Negative); Urine Hyaline Cast MANY /lpf (0 - 2); Urine Mucus FEW (None Seen); Urine Specific Gravity 1.024 (1.001-1.035); Urine WBC 2 /hpf (0 - 5)
[2022-06-15] MEDS ORDERED: FUROSEMIDE 100 MG/10ML VIAL IV ONE (13:30)
[2022-06-15] MEDS ORDERED: metroNIDAZOLE 500MG/100ML 100 ML IV SCH (22:00)
[2022-06-15] MEDS ORDERED: cefTRIAXone 1GM/50ML D5W 50 ML IV ONE (22:00)
[2022-06-15] MEDS ORDERED: ACETAMINOPHEN 325 MG TAB PO PRN (22:00)
[2022-06-15 23:41] LABS: INR 1.21 (0.9-1.15); Partial Thromboplastin Time 31.7 sec (24.6-33.4)
[2022-06-16 00:15] LABS: Bilirubin, Direct 0.8 mg/dL (0-0.2)
[2022-06-16 00:17] LABS: Bilirubin, Total 2.7 mg/dL (0.2-1.0)
[2022-06-16] MEDS: DOCUSATE SOD 100 MG CAP PO SCH ×3 (02:52→22:58)
[2022-06-16] MEDS: METOPROLOL TARTRATE 25 MG TAB PO SCH ×2 (02:52→21:03)
[2022-06-16 06:33] LABS: Basophils # (auto) 0 10 ^3/uL (0-0.2); Basophils % (auto) 0.7 % (0.0-2.0); Eosinophils # (auto) 0.1 10 ^3/uL (0-0.8); Hemoglobin 10.9 g/dL (12.2-16.2); Lymphocytes # (auto) 0.5 10 ^3/uL (0.4-5.4); Lymphocytes % (auto) 18.2 % (10.0-50.0); Mean Corpuscular Hemoglobin 27.8 pg (28.0-32.0); Mean Corpuscular Volume 84.1 fL (80.0-100.0); Monocytes # (auto) 0.4 10 ^3/uL (0-1.3); Monocytes % (auto) 12.5 % (0.0-12.0); Neutrophils # (auto) 1.9 10 ^3/uL (1.6-8.6); Neutrophils % (auto) 66.6 % (37.0-80.0); Nucleated Red Blood Cells % 0.1 %; Red Blood Cells 3.92 10^6/uL (4.0-5.20); Red Cell Distribution Width 16.9 % (11.8-14.3); White Blood Cell 2.9 10^3/uL (4.4-10.8)
[2022-06-16 06:46] LABS: Albumin 4.5 g/dL (3.4-5.0); Calcium 9.4 mg/dL (8.5-10.1); Potassium 3.5 mmol/L (3.5-5.1)
[2022-06-16 06:48] LABS: BUN/Creatinine Ratio 20.6
[2022-06-16 06:50] LABS: Bilirubin, Total 2.3 mg/dL (0.2-1.0); Total Protein 7.1 g/dL (6.4-8.2)
[2022-06-16 17:46] LABS: Cholesterol 163 mg/dL (< 200); HDL Cholesterol 57 mg/dL (40-59); LDL Cholesterol 89 mg/dL (< 100); Triglycerides 101 mg/dL (< 150)
[2022-06-16] MEDS: LISINOPRIL 10 MG TAB PO SCH (21:05)
[2022-06-16] MEDS: SODIUM CHLORIDE 0.9% 1,000 ML IV SCH ×2 (21:05→21:38)
[2022-06-16] MEDS: EMPAGLIFLOZIN 10 MG TAB PO SCH (21:06)
[2022-06-16] MEDS: ENOXAPARIN SOD 40 MG/0.4 ML SYRINGE SC SCH (21:06)
[2022-06-16] MEDS: HYDROcodone-ACET 5/325MG TAB PO PRN (21:07)
[2022-06-16] MEDS: DIGOXIN 0.125 MG TAB PO SCH (21:07)
[2022-06-16] MEDS: FUROSEMIDE 20 MG TAB PO SCH (21:07)
[2022-06-16] MEDS: metroNIDAZOLE 500MG/100ML 100 ML IV SCH (21:29)
[2022-06-16] MEDS: cefTRIAXone 1GM/50ML D5W 50 ML IV SCH (21:35)
[2022-06-17] MEDS: METOPROLOL TARTRATE 25 MG TAB PO SCH ×2 (07:53→10:38)
[2022-06-17] MEDS: metroNIDAZOLE 500MG/100ML 100 ML IV SCH ×4 (07:55→18:29)
[2022-06-17] MEDS: ONDANSETRON HCL 4 MG/2 ML VIAL IV PRN (08:04)
[2022-06-17] MEDS: MORPHINE SULFATE INJ 2 MG/ml SYRG IV PRN ×2 (08:05→18:30)
[2022-06-17] MEDS: SODIUM CHLORIDE 0.9% 1,000 ML IV SCH ×2 (09:13→13:42)
[2022-06-17] MEDS: cefTRIAXone 1GM/50ML D5W 50 ML IV SCH (09:24)
[2022-06-17] MEDS: DOCUSATE SOD 100 MG CAP PO SCH ×2 (10:00→21:59)
[2022-06-17] MEDS: LISINOPRIL 10 MG TAB PO SCH (10:37)
[2022-06-17] MEDS: EMPAGLIFLOZIN 10 MG TAB PO SCH (10:37)
[2022-06-17] MEDS: FUROSEMIDE 20 MG TAB PO SCH (10:37)
[2022-06-17] MEDS: ENOXAPARIN SOD 40 MG/0.4 ML SYRINGE SC SCH (10:37)
[2022-06-17] MEDS: DIGOXIN 0.125 MG TAB PO SCH (10:38)
[2022-06-17 12:00] VITALS: BP 143/74
[2022-06-17 16:32] VITALS: BP 134/75
[2022-06-17 20:00] VITALS: BP 136/53
[2022-06-17] MEDS: METOPROLOL TARTRATE 50 MG TAB PO SCH (22:01)
[2022-06-17 22:16] VITALS: BP 136/53
[2022-06-18] MEDS: metroNIDAZOLE 500MG/100ML 100 ML IV SCH ×3 (03:06→18:34)
[2022-06-18] MEDS: SODIUM CHLORIDE 0.9% 1,000 ML IV SCH ×2 (03:20→16:43)
[2022-06-18 05:16] VITALS: BP 120/72
[2022-06-18 08:20] LABS: Hematocrit 30.1 % (36.0-46.0); Hemoglobin 10.1 g/dL (12.2-16.2); Mean Corpuscular Hemoglobin 27.9 pg (28.0-32.0); Mean Corpuscular Hgb Conc. 33.6 g/dL (32.0-36.0); Mean Corpuscular Volume 83.1 fL (80.0-100.0); Red Blood Cells 3.62 10^6/uL (4.0-5.20); Red Cell Distribution Width 17.1 % (11.8-14.3)
[2022-06-18 08:38] LABS: Albumin 3.3 g/dL (3.4-5.0); Bilirubin, Total 1.2 mg/dL (0.2-1.0); Total Protein 5.3 g/dL (6.4-8.2)
[2022-06-18 08:39] LABS: Potassium 2.9 mmol/L (3.5-5.1)
[2022-06-18 08:40] LABS: Basophils % (manual) 0 (0.0-2.0); Blast Cells 0; Metamyelocytes % 0; Myelocytes % 0; Promyelocytes % 0; Reactive Lymphocytes 0
[2022-06-18 09:05] VITALS: BP 127/65
[2022-06-18] MEDS: cefTRIAXone 1GM/50ML D5W 50 ML IV SCH (09:14)
[2022-06-18 09:46] LABS: Band Neutrophils % (manual) 25; Eosinophils % (manual) 5 (0-7); Lymphocytes % (manual) 21 (10.0-50.0); Monocytes % (manual) 9 (0-12)
[2022-06-18] MEDS: EMPAGLIFLOZIN 10 MG TAB PO SCH (09:57)
[2022-06-18] MEDS: DOCUSATE SOD 100 MG CAP PO SCH ×2 (09:57→22:00)
[2022-06-18] MEDS: DIGOXIN 0.125 MG TAB PO SCH (09:58)
[2022-06-18] MEDS: METOPROLOL TARTRATE 50 MG TAB PO SCH ×2 (09:58→22:47)
[2022-06-18] MEDS: FUROSEMIDE 20 MG TAB PO SCH (09:58)
[2022-06-18] MEDS: LISINOPRIL 10 MG TAB PO SCH (09:59)
[2022-06-18] MEDS: ENOXAPARIN SOD 40 MG/0.4 ML SYRINGE SC SCH (09:59)
[2022-06-18] MEDS ORDERED: POTASSIUM CHL 20 Meq TABLET PO ONE (12:15)
[2022-06-18 13:05] VITALS: BP 136/80
[2022-06-18 17:00] VITALS: BP 130/74
[2022-06-18 20:00] VITALS: BP 138/63
[2022-06-18] MEDS: HYDROcodone-ACET 5/325MG TAB PO PRN (22:47)
[2022-06-19] MEDS: SODIUM CHLORIDE 0.9% 1,000 ML IV SCH ×2 (01:42→19:41)
[2022-06-19] MEDS: metroNIDAZOLE 500MG/100ML 100 ML IV SCH ×3 (03:20→18:43)
[2022-06-19 09:00] VITALS: BP 124/66
[2022-06-19] MEDS: DOCUSATE SOD 100 MG CAP PO SCH ×3 (10:00→21:38)
[2022-06-19] MEDS: cefTRIAXone 1GM/50ML D5W 50 ML IV SCH (10:28)
[2022-06-19] MEDS: DIGOXIN 0.125 MG TAB PO SCH (10:29)
[2022-06-19] MEDS: FUROSEMIDE 20 MG TAB PO SCH (10:29)
[2022-06-19] MEDS: EMPAGLIFLOZIN 10 MG TAB PO SCH (10:29)
[2022-06-19] MEDS: ENOXAPARIN SOD 40 MG/0.4 ML SYRINGE SC SCH (10:30)
[2022-06-19] MEDS: LISINOPRIL 10 MG TAB PO SCH (10:30)
[2022-06-19] MEDS: METOPROLOL TARTRATE 50 MG TAB PO SCH ×2 (10:30→21:37)
[2022-06-19 13:00] VITALS: BP 149/86
[2022-06-19] MEDS: ONDANSETRON HCL 4 MG/2 ML VIAL IV PRN (15:49)
[2022-06-19 16:40] VITALS: BP 137/78
[2022-06-20] MEDS: metroNIDAZOLE 500MG/100ML 100 ML IV SCH ×2 (02:37→12:33)
[2022-06-20] MEDS: SODIUM CHLORIDE 0.9% 1,000 ML IV SCH (08:45)
[2022-06-20 08:53] VITALS: BP 127/88
[2022-06-20] MEDS: cefTRIAXone 1GM/50ML D5W 50 ML IV SCH (09:03)
[2022-06-20] MEDS: EMPAGLIFLOZIN 10 MG TAB PO SCH (09:36)
[2022-06-20] MEDS: DOCUSATE SOD 100 MG CAP PO SCH (09:36)
[2022-06-20] MEDS: METOPROLOL TARTRATE 50 MG TAB PO SCH (09:37)
[2022-06-20] MEDS: DIGOXIN 0.125 MG TAB PO SCH (09:37)
[2022-06-20] MEDS: FUROSEMIDE 20 MG TAB PO SCH (09:37)
[2022-06-20] MEDS: LISINOPRIL 10 MG TAB PO SCH (09:38)
[2022-06-20] MEDS: ENOXAPARIN SOD 40 MG/0.4 ML SYRINGE SC SCH (09:38)
[2022-06-20] MEDS ORDERED: ONDA-144 PO (12:03)
[2022-06-20 12:18] VITALS: BP 127/88
== END 2022-06-20 13:30 | disposition home or self-care (01) ==
LOC: ER 11:17 → TELE 21:52 → TELE-E-ADS 06-17 12:07 → TELE-WESTW 06-17 17:15
PROVIDERS: ADMIT Registered Nurse; ATTEND Internal Medicine
DX: K74.60 Unspecified cirrhosis of liver (principal); D69.6 Thrombocytopenia, unspecified; N17.9 Acute kidney failure, unspecified; I13.0 Hypertensive heart and chronic kidney disease with heart failure and stage 1 through stage 4 chronic kidney disease, or unspecified chronic kidney disease; I50.9 Heart failure, unspecified; I48.91 Unspecified atrial fibrillation; N18.32 Chronic kidney disease, stage 3b; Z20.822 Contact with and (suspected) exposure to COVID-19; F41.9 Anxiety disorder, unspecified; K21.9 Gastro-esophageal reflux disease without esophagitis; Z79.01 Long term (current) use of anticoagulants; Z86.73 Personal history of transient ischemic attack (TIA), and cerebral infarction without residual deficits; Z88.0 Allergy status to penicillin; Z95.1 Presence of aortocoronary bypass graft; Z59.00 Homelessness unspecified; Z80.51 Family history of malignant neoplasm of kidney; Z82.49 Family history of ischemic heart disease and other diseases of the circulatory system
CPT/HCPCS: 36415; 74176; 76705; 80053; 80061; 81001; 82247; 82248; 82270; 82977; 83036; 83605; 83690; 84132; 84443; 84484; 85007; 85025; 85027; 85610; 85730; 87040; 87081; 87086; 87426; 93005; 96374; G0378; J0696; J2405; J3490